=== PATIENT | male | born 1940 | race Asian ===

== ENCOUNTER → 2021-02-01 01:35 | Outpatient (CLI) | payer MEDICARE, SELFPAY ==
[2021-02-02 14:52] LABS: SARS-CoV-2 RNA PCR Negative
== END ==
PROVIDERS: PCP Internal Medicine; Visit Provider Internal Medicine Hematology & Oncology
DX: Z01.812 Encounter for preprocedural laboratory examination (principal); Z20.822 Contact with and (suspected) exposure to COVID-19
CPT/HCPCS: C9803; U0003; U0005

== ENCOUNTER 2021-02-05 00:52 | Day surgery (SDC) | payer MEDICARE, SELFPAY ==
[2021-02-04 10:16] VITALS: BMI 25.4
--- NOTE | ~2021-02-05 | BM_ITS ---
EXAMINATION: CCL bone marrow asp w bx diag ORDER COMPLETED DATE: 02/05/2021 09:13 INDICATION: Macrocytic anemia TECHNIQUE: A time-out was performed to verify the patient's name, date of , and procedure to b e performed. The procedure including the risks, benefits, and alternatives was discussed with the pat ient. Risks discussed included bleeding and infection. The patient understood the risks and agreed to proceed. The skin overlying the right posterior iliac spine was prepped and draped in usual sterile fashion. Anesthetic was administered with 1% lidocaine subcutaneously. Systemic analgesia was provide d with 50 mcg fentanyl IV. An 11 gauge needle was inserted into the ilium with fluoroscopic guidance. Bone marrow was aspirated. An 8 gauge needle was then inserted into the ilium with fluoroscopic guid ance. A core bone marrow biopsy was obtained. There were no immediate complications. Fluoroscopy expo sure time was 0.1 minutes. The total number of images was 7. Total DAP was 55.3 mGycm^2 FINDINGS: Real-time fluoroscopy demonstrates a marker overlying the right posterior iliac spine. IMPRESSION: 1. Successful fluoro-guided bone marrow aspiration. 2. Successful fluoro-guided bone marrow core biopsy. Reviewed, dictated and finalized at location A.
--- NOTE | 2021-02-05 07:15 | SUR.PREOP ---
ARRIVES TO [facility] FOR SCHEDULED BONE MARROW BX AND ASPIRATION AMBULATORY W/ AT SIDE. ORIENTED TO ROOM, PLAN OF CARE, PROCEDURE. QUESTIONS ANSWERED. IV STARTED, LABS SENT, VS OBTAINED, CONSENT SIGNED. WILL CONTINUE TO MONITOR.
[2021-02-05 07:30] VITALS: BP 156/67; PULSE 68; RESP 15; TEMP 36; O2SAT 99
[2021-02-05 07:34] LABS: Basophils Absolute Auto 0.1 K/mm3 (0.0-0.1); Basophils Percent Auto 0.6 % (0.2-1.2); Eosinophils Absolute Auto 0.4 K/mm3 (0-0.3); Hematocrit 32.4 % (42.0-52.0); Hemoglobin 10.5 g/dL (14.0-18.0); Immature Granulocyte Absolute 0.05 K/mm3 (0.00-0.031); Immature Granulocyte Percent A 0.6 % (0-0.5); Lymphocytes Absolute Auto 2.47 K/mm3 (0.9-3.2); Lymphocytes Percent Auto 28.5 % (18.3-44.2); Mean Corpuscular HGB Conc 32.4 g/dl (32-36); Mean Corpuscular Hemoglobin 31.4 pg (26-34); Mean Platelet Volume 9.7 fl (7.4-10.4); Monocytes Absolute Auto 0.7 K/mm3 (0.1-0.6); Monocytes Percent Auto 7.6 % (2.6-8.5); Neutrophils Absolute Auto 5.1 K/mm3 (1.3-6.7); Neutrophils Percent Auto 58.7 % (45.5-73.1); Platelet Count Result 231 k/mm3 (150-375); Red Blood Count 3.34 M/mm3 (4.6-6.20); Red Cell Distribution Width 13.8 % (11.5-14.5); White Blood Count 8.7 K/mm3 (4.5-10.0)
[2021-02-05 07:43] LABS: INR 0.8; Prothrombin Time 12.1 Seconds (11.1-14.7)
--- NOTE | 2021-02-05 08:41 | P.SEDATION_ITS ---
Moderate Sedation Note-Pt Data Patient Data Allergies Allergy/AdvReac Type Severity Reaction Status Date / Time No Known Allergies Allergy Verified 02/05/21 07:36 Home Medications Medication Instructions Recorded Confirmed Type L. acidophilus-L. rhamnosus 2 cap PO DAILY 02/05/21 02/05/21 History [Digestive Health Probiotic] ascorbic acid (vitamin C) 1 g PO DAILY 02/05/21 02/05/21 History aspirin [Adult Low Dose Aspirin] 81 mg PO DAILY 02/05/21 02/05/21 History calcium carbonate-vitamin D3 1 tablet PO DAILY 02/05/21 02/05/21 History [Calcium with Vitamin D] lisinopril 10 mg PO DAILY 02/05/21 02/05/21 History metformin 1,000 mg PO BID 02/05/21 02/05/21 History hblggclgajob-dlm-gsco-FA-vit K 1 tablet PO DAILY 02/05/21 02/05/21 History [Adults Multivitamin] omega-3 fatty acids [Fish Oil] 600 mg PO DAILY 02/05/21 02/05/21 History oxybutynin chloride 10 mg PO DAILY 02/05/21 02/05/21 History tamsulosin 0.8 mg PO DAILY 02/05/21 02/05/21 History Sedation/Anesthesia: No previous sedation/anesthesia problems (including family history). [facility] Past Medical History Medical History (Updated 02/05/21 @ 08:43 by Enrique Price MD) Colon cancer Social History Social History Smoking packs per day: 0.25 Smoking cigarettes per day: 5.0 Years smoked: 60 Smoking pack-years: 15.00 Smoking status: Current every day smoker Tobacco type: cigarettes Substance use: never Substance use type: does not use Living arrangements: with family Gender identity (if verbalized by the patient): Male Spiritual care concerns: No Mod Sed Physical Exam Physical Exam Pre Procedural Exam: Normal: Appearance, Eyes, Ears, Nose, Neck, Throat, Airway, Lungs, Heart Rate, Heart Rhythm, Abdomen, Extremities and Skin Hours since solid foods: 12 Hours since liquid intake: 12 Internal Medicine - PN: Obj Da Vital Signs Vital Signs: Vital Signs - 24 hr 02/05/21 07:30 Temperature 96.8 F L Pulse Rate 68 Respiratory Rate 15 Blood Pressure 156/67 H Pulse Oximetry 99 Labs CBC & Chem 7: 02/05/21 07:22 Labs: Laboratory Results - last 24 hr 02/05/21 02/05/21 07:22 07:22 WBC 8.7 RBC 3.34 L Hgb 10.5 L Hct 32.4 L MCV 97.0 MCH 31.4 MCHC 32.4 RDW 13.8 Plt Count 231 MPV 9.7 Immature Gran % (Auto) 0.6 H Neut % (Auto) 58.7 Lymph % (Auto) 28.5 [place] % (Auto) 7.6 Eos % (Auto) 4.0 Baso % (Auto) 0.6 Lymph # (Auto) 2.47 [place] # (Auto) 0.7 H Eos # (Auto) 0.4 H Baso # (Auto) 0.1 Abs Immat Gran (auto) 0.05 H Absolute Neuts (auto) 5.1 Absolute Nucleated RBC 0.0 Nucleated RBC % 0.0 PT 12.1 INR 0.8 ASA Classification/Sedation ASA Classification/Sedation ASA Class: III Emergent: No Risks: Risks, benefits and alternatives explained and patient/family accepted plan for sedation. Patient re-evaluated immediately prior to sedation.
--- NOTE | 2021-02-05 08:45 | P.SEDATION_ITS ---
Moderate Sedation Note-Pt Data Patient Data Allergies Allergy/AdvReac Type Severity Reaction Status Date / Time No Known Allergies Allergy Verified 02/05/21 07:36 Home Medications Medication Instructions Recorded Confirmed Type L. acidophilus-L. rhamnosus 2 cap PO DAILY 02/05/21 02/05/21 History [Digestive Health Probiotic] ascorbic acid (vitamin C) 1 g PO DAILY 02/05/21 02/05/21 History aspirin [Adult Low Dose Aspirin] 81 mg PO DAILY 02/05/21 02/05/21 History calcium carbonate-vitamin D3 1 tablet PO DAILY 02/05/21 02/05/21 History [Calcium with Vitamin D] lisinopril 10 mg PO DAILY 02/05/21 02/05/21 History metformin 1,000 mg PO BID 02/05/21 02/05/21 History tqjjbsdsxecv-zxx-xpan-FA-vit K 1 tablet PO DAILY 02/05/21 02/05/21 History [Adults Multivitamin] omega-3 fatty acids [Fish Oil] 600 mg PO DAILY 02/05/21 02/05/21 History oxybutynin chloride 10 mg PO DAILY 02/05/21 02/05/21 History tamsulosin 0.8 mg PO DAILY 02/05/21 02/05/21 History Sedation/Anesthesia: No previous sedation/anesthesia problems (including family history). [facility], [facility] Past Medical History Medical History (Updated 02/05/21 @ 08:43 by Enrique Price MD) Colon cancer Social History Social History Smoking packs per day: 0.25 Smoking cigarettes per day: 5.0 Years smoked: 60 Smoking pack-years: 15.00 Smoking status: Current every day smoker Tobacco type: cigarettes Substance use: never Substance use type: does not use Living arrangements: with family Gender identity (if verbalized by the patient): Male Spiritual care concerns: No Mod Sed Physical Exam Physical Exam Pre Procedural Exam: Normal: Appearance, Eyes, Ears, Nose, Neck, Throat, Airway, Lungs, Heart Rate, Heart Rhythm, Abdomen, Extremities and Skin Hours since solid foods: 12 Hours since liquid intake: 12 Internal Medicine - PN: Obj Da Vital Signs Vital Signs: Vital Signs - 24 hr 02/05/21 07:30 Temperature 96.8 F L Pulse Rate 68 Respiratory Rate 15 Blood Pressure 156/67 H Pulse Oximetry 99 Labs CBC & Chem 7: 02/05/21 07:22 Labs: Laboratory Results - last 24 hr 02/05/21 02/05/21 07:22 07:22 WBC 8.7 RBC 3.34 L Hgb 10.5 L Hct 32.4 L MCV 97.0 MCH 31.4 MCHC 32.4 RDW 13.8 Plt Count 231 MPV 9.7 Immature Gran % (Auto) 0.6 H Neut % (Auto) 58.7 Lymph % (Auto) 28.5 [place] % (Auto) 7.6 Eos % (Auto) 4.0 Baso % (Auto) 0.6 Lymph # (Auto) 2.47 [place] # (Auto) 0.7 H Eos # (Auto) 0.4 H Baso # (Auto) 0.1 Abs Immat Gran (auto) 0.05 H Absolute Neuts (auto) 5.1 Absolute Nucleated RBC 0.0 Nucleated RBC % 0.0 PT 12.1 INR 0.8 ASA Classification/Sedation ASA Classification/Sedation ASA Class: III Emergent: No Risks: Risks, benefits and alternatives explained and patient/family accepted plan for sedation. Patient re-evaluated immediately prior to sedation.
[2021-02-05 09:17] VITALS: BP 175/85; PULSE 77; RESP 12; O2SAT 99
[2021-02-05 09:30] VITALS: BP 136/53; PULSE 78; RESP 12; TEMP 36.6; O2SAT 100
[2021-02-05 09:45] VITALS: BP 132/52; PULSE 77; RESP 14; O2SAT 98
[2021-02-05 10:00] VITALS: BP 134/61; PULSE 74; RESP 14; O2SAT 98
[2021-02-05 10:15] VITALS: BP 152/66; PULSE 78; RESP 14; O2SAT 100
--- NOTE | 2021-02-05 10:30 | SUR.PHASEII ---
REVIEWED DISCHARGE INSTRUCTIONS, WOUND CARE, FOLLOW UP WITH PT. AND HIS . QUESTIONS ANSWERED. VOICED UNDERSTANDING OF ALL. R. 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 SITE SOFT, NONTENDER. NO BLEEDING OR EDEMA NOTED. DENIES PAIN. DISCHARGED HOME, OUT VIA WC TO 'S WAITING CAR. VOICES NO C/O. NO DISTRESS NOTED.
--- NOTE | 2021-02-05 11:55 | SUR.PHASEII ---
PT. 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 DR. GILMORE AWARE AND STATES HE WILL NOTIFY DR. OSBORNE HIMSELF OF RHYTHM. PT. WITHOUT DISTRESS OR C/O.
== END 2021-02-05 09:13 | disposition home or self-care (01) ==
PROVIDERS: Radiology Diagnostic Radiology; PCP Internal Medicine; Visit Provider Internal Medicine Hematology & Oncology
DX: D53.9 Nutritional anemia, unspecified (principal); F17.210 Nicotine dependence, cigarettes, uncomplicated; Z85.038 Personal history of other malignant neoplasm of large intestine
CPT/HCPCS: 36415; 38222; 85025; 85610; 88184; 88185; 88305; 88311; 88313; C9803; J3010; J7040; U0003; U0005

== ENCOUNTER 2021-09-16 09:22 | Outpatient (CLI) | payer MEDICARE, SELFPAY ==
[2021-09-16 10:36] LABS: Basophils Absolute Auto 0.1 K/mm3 (0.0-0.1); Eosinophils Absolute Auto 0.3 K/mm3 (0-0.3); Eosinophils Percent Auto 4.2 % (0-4.4); Hematocrit 31.5 % (42.0-52.0); Immature Granulocyte Absolute 0.02 K/mm3 (0.00-0.031); Immature Granulocyte Percent A 0.3 % (0-0.5); Lymphocytes Absolute Auto 3.19 K/mm3 (0.9-3.2); Lymphocytes Percent Auto 47.3 % (18.3-44.2); Mean Corpuscular HGB Conc 31.7 g/dl (32-36); Mean Corpuscular Hemoglobin 31.9 pg (26-34); Mean Corpuscular Volume 100.6 fl (80-100); Mean Platelet Volume 9.7 fl (7.4-10.4); Monocytes Absolute Auto 0.4 K/mm3 (0.1-0.6); Monocytes Percent Auto 6.1 % (2.6-8.5); Neutrophils Absolute Auto 2.8 K/mm3 (1.3-6.7); Neutrophils Percent Auto 41.1 % (45.5-73.1); Platelet Count Result 304 k/mm3 (150-375); Red Blood Count 3.13 M/mm3 (4.6-6.20); Red Cell Distribution Width 16.2 % (11.5-14.5); White Blood Count 6.7 K/mm3 (4.5-10.0)
[2021-09-16 10:51] LABS: Alanine Aminotransferase 14 U/L (4-50); Albumin Level 4.3 g/dL (3.5-5.1); Alkaline Phosphatase 44 U/L (38-126); Anion Gap 9 mmol/L (8-16); Aspartate Amino Transferase 21 U/L (17-59); Bilirubin,Total 0.4 mg/dL (0.2-1.3); Blood Urea Nitrogen 24 mg/dL (9-20); Calcium 9.9 mg/dL (8.4-10.2); Carbon Dioxide 24 mmol/L (22-30); Chloride 106 mmol/L (98-107); Estimated Glomerular Filt Rate 53; Glucose 121 mg/dL (65-110); Potassium 4.1 mmol/L (3.4-5.0); Sodium 139 mmol/L (137-145)
[2021-09-16 11:01] LABS: Parathyroid Intact 22.5 pg/mL (7.5-53.5)
[2021-09-16 11:26] LABS: Hemoglobin A1C 5.5 % (<5.7)
[2021-09-16 11:27] LABS: Add Urine Microscopic? YES; Amorphous Sediment Urine Few; Appearance Urine Cloudy (Clear); Bacteria Urine Trace /hpf; Bilirubin Urine Negative (Negative); Budding Yeast Urine Present /hpf; Color Urine Yellow (Yellow); Glucose Urine UA Negative (Negative); Ketones Urine Negative (Negative); Leukocyte Esterase Ur 1+ LEU/UL (Negative); Mucus Urine Rare /lpf; Nitrate Urine Positive (Negative); Protein Urine 2+ mg/dL (Negative); Specific Grav Ur 1.017 (1.001-1.035); Squamous Epithelial Cell Urine Rare /hpf (Few); Urobilinogen Urine Negative mg/dL (<2.0); WBC Urine 21-30 /hpf
[2021-09-16 11:41] LABS: Blood Urine Negative (Negative)
[2021-09-16 12:01] LABS: Erythrocyte Sedimentation Rate 118 mm/hr (0-20)
[2021-09-21 04:58] LABS: Vitamin D 1,25 (OH)2 Total 19 pg/mL (18-72); Vitamin D2 1,25 (OH)2 <8 pg/mL; Vitamin D3 1,25 (OH)2 19 pg/mL
== END 2021-09-16 09:23 | disposition home or self-care (01) ==
DX: R68.89 Other general symptoms and signs (principal); E79.0 Hyperuricemia without signs of inflammatory arthritis and tophaceous disease; E55.9 Vitamin D deficiency, unspecified; R70.0 Elevated erythrocyte sedimentation rate; R73.09 Other abnormal glucose; E21.3 Hyperparathyroidism, unspecified
CPT/HCPCS: 36415; 80053; 81001; 82652; 83036; 83970; 84550; 85025; 85652; 87086; 87088

== ENCOUNTER 2022-02-19 01:36 | Day surgery (SDC) | payer MEDICARE, SELFPAY ==
[2022-02-06 14:21] VITALS: BMI 23.3
[2022-02-19 11:11] VITALS: BP 158/57; PULSE 85; RESP 18; TEMP 36.8; O2SAT 100
--- NOTE | 2022-02-19 11:17 | WPDHPUPDATE1 ---
History and Physical Update Update Date/Time: 02/19/22 11:17 History and Physical has been reviewed, including an updated exam of the patient. There are NO changes in the patient's condition. Risks, benefits, and alternatives have been discussed and questions answered. Patient agrees to proceed with procedure.
[2022-02-19] MEDS: LACTATED RINGERS 1,000 ML 150 ML IV CONT (11:23)
[2022-02-19 11:32] LABS: Glucose Point of Care 90 mg/dl (65-105)
--- NOTE | 2022-02-19 11:48 | WPDANESEPPF ---
Anes - Initial Pre Proc Eval Procedure: Operation Date: 02/19/22 12:30 Proposed Procedures p Esophagogastroduodenoscopy & Colonoscopy - Ethan Leslie MD Date/Time: 02/19/22 11:48 Surgeon: Ethan Leslie MD Pre Op Diagnosis: anemia, hx of colon ca Patient Data Age: 81 Gender: M Height: 1.75 m Weight: 67.8 kg Last Vital Signs Temp 98.3 F 02/19/22 11:11 Pulse 85 02/19/22 11:11 Resp 18 02/19/22 11:11 BP 158/57 H 02/19/22 11:11 Pulse Ox 100 02/19/22 11:11 O2 Del Method Room Air 02/19/22 11:11 Allergies Allergy/AdvReac Type Severity Reaction Status Date / Time No Known Allergies Allergy Verified 02/19/22 11:09 Home Medications Medication Instructions Recorded Confirmed Type Lactobacillus acidophilus and 2 cap PO DAILY 02/05/21 02/11/22 History rhamnosus 10 billion cell capsule (Digestive Health Probiotic) ascorbic acid (vitamin C) 1,000 mg 1 g PO DAILY 02/05/21 02/11/22 History tablet aspirin 81 mg tablet 81 mg PO DAILY 02/05/21 02/11/22 History calcium carbonate 600 mg-vitamin 1 tablet PO DAILY 02/05/21 02/11/22 History D3 10 mcg (400 unit) tablet (Calcium with Vitamin D) lisinopril 10 mg tablet 10 mg PO DAILY 02/05/21 02/11/22 History metformin 500 mg tablet 1,000 mg PO BID 02/05/21 02/11/22 History multivit with minerals-iron 18 1 tablet PO DAILY 02/05/21 02/11/22 History mg-folic ac 400 mcg-vit K 25 mcg tablet (Adults Multivitamin) omega-3 fatty acids 300 mg capsule 600 mg PO DAILY 02/05/21 02/11/22 History tamsulosin 0.4 mg capsule 0.8 mg PO DAILY 02/05/21 02/11/22 History Laboratory Tests 02/19/22 11:28 POC Capillary Glucose 90 mg/dl mg/dl (65-105) Patient hx anesthesia problems: none Family hx anesthesia problems: none Results Review: All pre-operative results and documents have been reviewed as part of the pre-operative evaluation. [facility] Past Medical History Medical History Colon cancer Social History Social History Smoking packs per day: 0.3 Smoking cigarettes per day: 6.0 Years smoked: 50 Smoking pack-years: 15.00 Smoking status: Current every day smoker Tobacco type: cigarettes Alcohol intake: never Substance use: never Substance use type: does not use Living arrangements: with family Gender identity (if verbalized by the patient): Male Spiritual care concerns: No Anes - Eval Final PreProcedure Day of Procedure 02/19/22 11:48 Patient weight: normal Heart: regular rate and rhythm Lungs: clear to auscultation Airway: Mallampati scale class II Neurological: alert and oriented Last oral intake: >/= 8 hours ASA classification: III Emergent: no Anesthetic plan: proceed Anesthesia type and monitoring: general GIVS and standard monitoring Results Review: All pre-operative results and documents have been reviewed as part of the pre-operative evaluation. Informed Consent: The patient's anesthetic plan and its attendant risks and benefits were discussed with the patient/family/POA. Questions were solicited and answers provided to the satisfaction of the patient/family/POA.
--- NOTE | 2022-02-19 12:32 | SUR.OPER ---
EGD ENDED AT 1227, COLONOSCOPY BEGAN AT 1232.
[2022-02-19 12:49] VITALS: BP 122/50; PULSE 71; RESP 19; O2SAT 92
[2022-02-19 12:59] VITALS: BP 116/50; PULSE 69; RESP 19; O2SAT 92
[2022-02-19 13:04] VITALS: BP 155/66; PULSE 69; RESP 18; O2SAT 97
== END 2022-02-19 13:34 | disposition home or self-care (01) ==
PROVIDERS: PCP Internal Medicine; Visit Provider Internal Medicine Gastroenterology
PROC: 0DJ08ZZ Inspection of Upper Intestinal Tract, Via Natural or Artificial Opening Endoscopic (ICD-10-PCS; CPT 43235; principal; 2022-02-19 12:30)
DX: Z12.11 Encounter for screening for malignant neoplasm of colon (principal); D12.5 Benign neoplasm of sigmoid colon; K57.30 Diverticulosis of large intestine without perforation or abscess without bleeding; I12.9 Hypertensive chronic kidney disease with stage 1 through stage 4 chronic kidney disease, or unspecified chronic kidney disease; E11.22 Type 2 diabetes mellitus with diabetic chronic kidney disease; N18.9 Chronic kidney disease, unspecified; F17.210 Nicotine dependence, cigarettes, uncomplicated; Z85.038 Personal history of other malignant neoplasm of large intestine
CPT/HCPCS: 45385; 43235; 82948; 88305; J2704; J7120

== ENCOUNTER 2023-01-07 12:32 | Emergency (ER) | payer MEDICARE, SELFPAY ==
[2023-01-07 12:50] VITALS: BP 131/56; PULSE 75; TEMP 36.4; O2SAT 100
--- NOTE | 2023-01-07 14:15 | ED.EPISTAXIS ---
HPI - Epistaxis General Chief complaint: Epistaxis Stated complaint: nose bleed Time Seen by Provider: 01/07/23 13:58 Source: patient Mode of arrival: ambulatory Limitations: no limitations History of Present Illness HPI Narrative: Patient is an 82-year-old male with a history of hypertension presenting to the emergency department for evaluation of nosebleed. Patient reports nosebleeding from the right nostril over the past 10 days. Patient recently had his chronic anticoagulation discontinued secondary to his nosebleeding. He denies fever, chills, nausea, vomiting, lightheadedness or dizziness. No syncopal events. No dyspnea, palpitations or shortness of breath. Patient without history of facial trauma. Reports intermittent spontaneous nosebleeding, does often respond well to pressure to the naris with cessation of bleeding. Related Data Home Medications Medication Instructions Recorded Confirmed Lactobacillus acidophilus and 2 cap PO DAILY 02/05/21 09/09/22 rhamnosus 10 billion cell capsule ([employer] Health Probiotic) ascorbic acid (vitamin C) 1,000 mg 1 g PO DAILY 02/05/21 09/09/22 tablet aspirin 81 mg tablet 81 mg PO DAILY 02/05/21 09/09/22 calcium carbonate 600 mg-vitamin 1 tablet PO DAILY 02/05/21 09/09/22 D3 10 mcg (400 unit) tablet (Calcium with Vitamin D) lisinopril 10 mg tablet 10 mg PO DAILY 02/05/21 09/09/22 metformin 500 mg tablet 1,000 mg PO BID 02/05/21 09/09/22 multivit with minerals-iron 18 1 tablet PO DAILY 02/05/21 09/09/22 mg-folic ac 400 mcg-vit K 25 mcg tablet (Adults Multivitamin) omega-3 fatty acids 300 mg capsule 600 mg PO DAILY 02/05/21 09/09/22 tamsulosin 0.4 mg capsule 0.8 mg PO DAILY 02/05/21 09/09/22 Allergies Allergy/AdvReac Type Severity Reaction Status Date / Time No Known Allergies Allergy Verified 01/07/23 13:06 Review of Systems Review of Systems: CONSTITUTIONAL: Denies fever HEENT: Patient reports right epistaxis CARDIOVASCULAR: Denies chest pain RESPIRATORY: Denies cough or dyspnea. GASTROINTESTINAL: Denies abdominal pain SKIN: Denies rash MUSCULOSKELETAL: Denies back pain NEUROLOGIC: Denies headache [facility] Past Medical History Medical History (Updated 01/07/23 @ 16:09 by Jojo Lopes MD) Anemia in CKD (chronic kidney disease) Colon cancer History of colon cancer HTN (hypertension), benign Macrocytic anemia Renal insufficiency Social History Social History Smoking packs per day: 0.3 Smoking cigarettes per day: 6.0 Years smoked: 50 Smoking pack-years: 15.00 Smoking status: Current every day smoker Tobacco type: cigarettes Alcohol intake: never Substance use: never Substance use type: does not use Living arrangements: with family Gender identity (if verbalized by the patient): Male Spiritual care concerns: No Exam Narrative: GENERAL: Awake, alert, conversant HEAD: Normocephalic, atraumatic. EYES: PERRLA and EOMI. ENT: Nares clear, no rhinorrhea; slow bleeding, right naris. Bleeding source is anterior. Mucous membranes moist. NECK: Supple. CHEST: No respiratory distress, breathing even and non labored HEART: Regular rate, sinus rhythm ABDOMEN:Non distended, non tender EXTREMITIES: Normal range of motion. No edema. SKIN: Warm, dry, no rash. NEURO:No focal deficits. Alert and oriented x3 Course Vital Signs Vital signs: Vital Signs Temperature 36.4 C 01/07/23 12:50 Pulse Rate 75 01/07/23 12:50 Blood Pressure 131/56 L 01/07/23 12:50 Pulse Oximetry 100 01/07/23 12:50 Temperature 36.4 C 01/07/23 12:50 Pulse Rate 75 01/07/23 12:50 Blood Pressure 131/56 L 01/07/23 12:50 Pulse Oximetry 100 01/07/23 12:50 MDM - Epistaxis MDM Narrative Medical decision making narrative: Medical decision making narrative: -Presentation: Presented for evaluation of right naris epistaxis consistent with anterior epistaxis. Patient
[2023-01-07 16:16] VITALS: BP 132/66; PULSE 89; RESP 17; O2SAT 99
== END 2023-01-07 16:17 | disposition home or self-care (01) ==
PROVIDERS: Emergency Provider Emergency Medicine; PCP Internal Medicine
DX: R04.0 Epistaxis (principal); I12.9 Hypertensive chronic kidney disease with stage 1 through stage 4 chronic kidney disease, or unspecified chronic kidney disease; E11.22 Type 2 diabetes mellitus with diabetic chronic kidney disease; N18.9 Chronic kidney disease, unspecified; D63.1 Anemia in chronic kidney disease; Z79.84 Long term (current) use of oral hypoglycemic drugs; Z79.82 Long term (current) use of aspirin
CPT/HCPCS: 99282; A9270

== ENCOUNTER 2023-05-11 14:17 | Outpatient (CLI) | payer MEDICARE, SELFPAY ==
--- NOTE | ~2023-05-11 | XR_ITS ---
EXAM: XR lumbar spine 2-3V DATE: 05/11/2023 14:43 HISTORY: Spondylosis without myelopathy or radiculopathy, lumbar nita . COMPARISON: None available. FINDINGS: Decreased mineralization. Mild fusiform dilation of the calcified abdominal aorta, measurin g up to 2.7 cm. 5 nonrib-bearing lumbar-type vertebral bodies. Pedicles intact. Normal vertebral body alignment. Vertebral body heights preserved. Mild disc space narrowing and marginal osteophytosis at L3-4. Mild osteophytosis at L4-5. Mild facet sclerosis and hypertrophy in the lower lumbar spine. No fracture or dislocation. IMPRESSION: Mild multilevel lumbar degenerative disc disease. Mild lower lumbar facet arthropathy 2.7 cm fusiform dilation of the abdominal aorta, consider ultrasound of the aorta for further evaluat ion. Reviewed, dictated and finalized at location K. IMPRESSION: Mild multilevel lumbar degenerative disc disease. Mild lower lumbar facet arthropathy 2.7 cm fusiform dilation of the abdominal aorta, consider ultrasound of the aor ta for further evaluation.
== END 2023-05-11 14:18 ==
PROVIDERS: PCP Anesthesiology Pain Medicine; Visit Provider Anesthesiology Pain Medicine
DX: M47.896 Other spondylosis, lumbar region (principal); M51.36 Other intervertebral disc degeneration, lumbar region
CPT/HCPCS: 72100

== ENCOUNTER 2023-06-05 11:13 | Outpatient (CLI) | payer MEDICARE, SELFPAY ==
--- NOTE | ~2023-06-05 | MR_ITS ---
MRI of the lumbar spine Clinical History: Back pain Technique: Axial T2-weighted images, and sagittal T1-weighted, T2-weighted, and T2 fat-sat images wer e acquired. Findings: There is no fracture or subluxation of lumbar spine. Vertebral bodies maintain normal heigh t and alignment. No suspicious bone marrow signal abnormality seen. At L1-L2, there is no disc bulge or herniation. There is moderate facet arthropathy. No central canal stenosis or neural foraminal narrowing. At L2-L3, there is no disc bulge or herniation. There is moderate facet arthropathy. No central canal stenosis or neural foraminal narrowing. At L3-L4, there is minimal disc bulge with moderate facet arthropathy. There is minimal central canal stenosis. Neural foramina are preserved. At L4-L5, there is mild diffuse disc bulge with moderate facet arthropathy. There is mild central can al stenosis/thecal sac compression. There is mild bilateral neural foraminal narrowing. At L5-S1, there is no significant disc bulge or herniation. There is mild to moderate facet arthropat hy. No central canal stenosis or neural foraminal narrowing. Paravertebral soft tissues are unremarkable. Impression: Mild degenerative spondylosis, as above. Reviewed, dictated and finalized at location . Impression: Mild degenerative spondylosis, as above.
== END 2023-06-05 11:14 ==
LOC: MICIMG 11:15
PROVIDERS: PCP Nurse Practitioner Family; Visit Provider Nurse Practitioner Family
DX: M54.59 Other low back pain (principal)
CPT/HCPCS: 72148

== ENCOUNTER 2024-08-22 14:46 | Outpatient (CLI) | payer MEDICARE, SELFPAY ==
--- NOTE | ~2024-08-22 | XR_ITS ---
EXAMINATION: XR lumbar spine 2-3V DATE: 08/22/2024 15:04 INDICATION: Other spondylosis with radiculopathy, lumbosacral region. Low back pain. TECHNIQUE: 3 views of lumbar spine including standing views were obtained. COMPARISON: Lumbar spine radiographs 05/11/2023, MRI 06/05/2023 FINDINGS: Alignment is normal. Vertebral body heights are normal. There is mildly decreased disc heig ht at L3-L4. There are endplate osteophytes at all levels. 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 IMPRESSION: 1. Mild lumbar spondylosis. Reviewed, dictated and finalized at location A. TABLE SORTER IMPRESSION: 1. Mild lumbar spondylosis.
== END 2024-08-22 14:47 | disposition home or self-care (01) ==
PROVIDERS: PCP Pain Medicine Interventional Pain Medicine; Visit Provider Pain Medicine Interventional Pain Medicine
DX: E11.49 Type 2 diabetes mellitus with other diabetic neurological complication (principal); E11.618 Type 2 diabetes mellitus with other diabetic arthropathy; M51.16 Intervertebral disc disorders with radiculopathy, lumbar region; M51.17 Intervertebral disc disorders with radiculopathy, lumbosacral region; M47.27 Other spondylosis with radiculopathy, lumbosacral region; M47.26 Other spondylosis with radiculopathy, lumbar region; M47.816 Spondylosis without myelopathy or radiculopathy, lumbar region; M47.817 Spondylosis without myelopathy or radiculopathy, lumbosacral region; G89.4 Chronic pain syndrome
CPT/HCPCS: 72100

== ENCOUNTER 2025-06-08 10:29 | Emergency (ER) | payer MEDICARE, SELFPAY ==
--- OUTSIDE RECORDS SUMMARY | 2024-01-10 09:15 | XMS_ITS ---
Author Organization [facility] Office Address [address] [place] [address] Care Team Providers Care Research Quality Assurance Specialist Name Role Phone Richa Núñez Unavailable [phone] Medications Medication SIG (Take, Route, Frequency, Duration) Notes Start Date End Date Status Janumet 50-500 MG 1 tablet with meals Orally Twice a day Active metFORMIN HCl 1000 MG 1 tablet with a me al Orally twice a day; Duration: 90 day(s) 02/09/2022 Active metFORMIN HCl 500 MG 1 tablet with a mino l Orally Once a day; Duration: 30 days Active Solifenacin Succinate 5 MG TAKE 1 TABLET BY MOUTH EVERY DAY FOR 90 DAYS; Duration: 90 Active glipiZIDE ER 5 MG 1 tablet with breakfast Orally Once a day; Duration: 90 days discard last, updated for 90 days 08/02/2023 Active Lisinopril 10 MG TAKE 1 TABLET BY MOUTH EVERY DAY; Duration: 90 Active Tamsulosin HCl 0.4 MG TAKE 2 CAPSULES BY MOUTH EVERY NIGHT; Duration: 90 Active glipiZIDE 5 MG 1 tablet 30 minutes before breakfast Orally Once a day; Duration: 30 day(s) 08/02/2023 Active Social History Sex Assigned At : Social History Observation Description Sex Assigned At Male Encounters Encounter Location Date Provider Diagnosis [facility] [place] [facility] [address] [place] [address] 01/10/2024 Richa Núñez Chronic kidney disease, stage 2 (mild) N18.2 ; Anemia, unspecified D64.9 ; Type 2 diabetes mellitus with hyperglycemia E11.65 ; Hyperlipidemia, unspecified E78.5 and Essential (primary) hypertension I10 Assessments Encounter Date Diagnosis (ICD Code) Assessment Notes Treatment Notes Treatment Clinical Notes Section Notes 01/10/2024 Chronic kidney disease, stage 2 (mild) (ICD-10 - N18.2) 01/10/2024 Anemia, unspecified (ICD-10 - D64.9) 01/10/2024 Type 2 diabetes mellitus with hyperglycemia (ICD-10 - E11.65) 01/10/2024 Hyperlipidemia, unspecified (ICD-10 - E78.5) 01/10/2024 Essential (primary) hypertension (ICD-10 - I10) Plan Of Treatment Next Appt Details Provider Name:Richa tanner, 09/10/2025 02:30:00 PM, [address], [place], [address], Progress Notes * DANETTE MARCELELODOB:1940 ( 84 yo M)Acc No.[id number]:01/10/2024 Progress Notes Patient: SY RESENDIZ Provider: Brandon NÚÑEZ M.D :1940 A ge:83 Y S ex:Male Date:01/10/2024 Address:[address] [place] [address] Subjective: * Chief Complaints: * * Medical History: * Medications: T aking Janumet 50-500 MG Tablet 1 tablet with meals Orally Twice a day , Taking metFORMIN HCl 1000 MG Tablet 1 tablet with a meal Orally twice a day , Taking metFORMIN HCl 500 MG Tablet 1 tablet with a meal Orally Once a day , Taking Lisinopril 10 MG Tablet TAKE 1 TABLET BY MOUTH EVERY DAY , Taking Tamsulosin HCl 0.4 MG Capsule TAKE 2 CAPSULES BY MOUTH EVERY NIGHT , Taking glipiZIDE 5 MG Tablet 1 tablet 30 minutes before breakfast Orally Once a day , Taking glipiZIDE ER 5 MG Tablet Extended Release 24 Hour 1 tablet with breakfast Orally Once a day , Notes to Pharmacist: discard last, updated for 90 days, Taking Solifenacin Succinate 5 MG Tablet TAKE 1 TABLET BY MOUTH EVERY DAY FOR 90 DAYS Objective: * Vitals: Assessment: * Assessment: 1. C hronic kidney disease, stage 2 (mild) - N18.2 2 . A nemia, unspecified - D64.9 3 . T ype 2 diabetes mellitus with hyperglycemia - E11.65 ?4. H yperlipidemia, unspecified - E78.5 5 . E ssential (primary) hypertension - I10 Plan: * Treatment: * Billing Information: * Visit Code: 13963 Office Visit, Est Pt., Level 3. * Procedure Codes: * Electronic signature of Ben Núñez MD on 06/08/2025 at 11:17 AM CDT Sign off status: Pending * Provider: Brandon NÚÑEZ M.D Date: 0 01/10/2024 Generated for Dayne smith/Lucien/Demetris on: 0 06/08/2025 11:17 AM CDT
--- OUTSIDE RECORDS SUMMARY | 2024-05-15 09:15 | XMS_ITS ---
Author Organization [facility] Office Address [address] [place] [address] Care Team Providers Care Mortising Machine Operator Name Role Phone KellyAdriRicha Unavailable [phone] Social History Sex Assigned At : Social History Observation Description Sex Assigned At Male Problems Problem Type SNOMED Code ICD Code Onset Dates Problem Status W/U Status Risk Notes Problem Chronic kidney disease stage 3B (disorder) (911826657) Chronic kidney disease, stage 3b (N18.32) Active confirmed Problem Hyperkalemia (81420329) Hyperkalemia (E87.5) Active confirmed Problem Lower urinary tract symptoms due to benign prostatic hypertrophy (33290148712738) Benign prostatic hyperplasia with lower urinary tract symptoms (N40.1) Active confirmed Encounters Encounter Location Date Provider Diagnosis [facility] [address] [facility] [address] [place] [address] 05/15/2024 Richa Núñze Chronic kidney disea se, stage 3b N18.32 ; Type 2 diabetes mellitus with hyperglycemia E11.65 ; Hyperkalemia E87.5 and Benign prostatic hyperplasia with lower urinary tract symptoms N40.1 Assessments Encounter Date Diagnosis (ICD Code) Assessment Notes Treatment Notes Treatment Clinical Notes Section Notes 05/15/2024 Chronic kidney disease, stage 3b (ICD-10 - N18.32) 05/15/2024 Type 2 diabetes mellitus with hyperglycemia (ICD-10 - E11.65) 05/15/2024 Hyperkalemia (ICD-10 - E87.5) 05/15/2024 Benign prostatic hyperplasia with lower urinary tract symptoms (ICD-10 - N40.1) Plan Of Treatment Next Appt Details Provider Name:Richa tanner, 09/10/2025 02:30:00 PM, [address], [address], [place], [address], Progress Notes * SY SAMANIEGODOB:1940 ( 84 yo M)Acc No.[id number]:05/15/2024 Progress Notes Patient: SY RESENDIZ Provider: Brandon NÚÑEZ M.D :1940 A ge:83 Y S ex:Male Date:05/15/2024 Address:[address] [place] [address] Subjective: * Chief Complaints: * * Medical History: Objective: * Vitals: Assessment: * Assessment: 1. C hronic kidney disease, stage 3b - N18.32 (Primary) 2 . T ype 2 diabetes mellitus with hyperglycemia - E11.65 3 . H yperkalemia - E87.5 ?4. B enign prostatic hyperplasia with lower urinary tract symptoms - N40.1 Plan: * Treatment: * Billing Information: * Visit Code: 44771 Office Visit, Est Pt., Level 4. * Procedure Codes: * Electronic signature of Ben Núñez MD on 06/08/2025 at 11:17 AM CDT Sign off status: Pending * Provider: Brandon NÚÑEZ M.D Date: 05/15/2024 Generated for Dayne smith/Lucien/Calitting on: 0 06/08/2025 11:17 AM CDT
--- OUTSIDE RECORDS SUMMARY | 2024-09-11 09:00 | XMS_ITS ---
Author Organization [facility] Address [address] [place] [address] Care Team Providers Care Machine Fastener Name Role Phone KellyRicha ahuja Unavailable [phone] Social History Sex Assigned At : Social History Observation Description Sex Assigned At Male Problems Problem Type SNOMED Code ICD Code Onset Dates Problem Status W/U Status Risk Notes Problem Low back pain (819187997) Low back pain, unspecified (M54.50) Active confirmed Encounters Encounter Location Date Provider Diagnosis [facility] [place] [facility] [address] [place] [address] 09/11/2024 Richa Núñez Chronic kidney disease, stage 3b N18.32 ; Type 2 diabetes mellitus with hyperglycemia E11.65 ; Low back pain, unspecified M54.50 and Benign prostatic hyperplasia with lower urinary tract symptoms N40.1 Assessments Encounter Date Diagnosis (ICD Code) Assessment Notes Treatment Notes Treatment Clinical Notes Section Notes 09/11/2024 Chronic kidney disease, stage 3b (ICD-10 - N18.32) 09/11/2024 Type 2 diabetes mellitus with hyperglycemia (ICD-10 - E11.65) 09/11/2024 Low back pain, unspecified (ICD-10 - M54.50) 09/11/2024 Benign prostatic hyperplasia with lower urinary tract symptoms (ICD-10 - N40.1) Plan Of Treatment Pending Test Test Name Order Date RENAL FUNCTION PANEL (80391) 09/11/2024 Future Test Test Name Order Date RENAL FUNCTION PANEL ([id number]) 11/07/2024 Next Appt Details Provider Name:Richa tanner, 09/10/2025 02:30:00 PM, [address], [place], [address], Progress Notes * SY SAMANIEGODOB:1940 ( 84 yo M)Acc No.[id number]:09/11/2024 Progress Notes Patient: SY RESENDIZ Provider: Brandon NÚÑEZ M.D :1940 A ge:83 Y S ex:Male Date:09/11/2024 Address:[address] [place], [place] [id number] Subjective: * Chief Complaints: * * Medical History: Objective: * Vitals: Assessment: * Assessment: 1. C hronic kidney disease, stage 3b - N18.32 (Primary) 2 . T ype 2 diabetes mellitus with hyperglycemia - E11.65 3 . L ow back pain, unspecified - M54.50? 4. B enign prostatic hyperplasia with lower urinary tract symptoms - N40.1 Plan: * Treatment: 2. T ype 2 diabetes mellitus with hyperglycemia L AB: RENAL FUNCTION PANEL (42329) L AB: RENAL FUNCTION PANEL (90739) (Ordered for 11/07/2024) 3. L ow back pain, unspecified L AB: RENAL FUNCTION PANEL (64084) L AB: RENAL FUNCTION PANEL (17210) (Ordered for 11/07/2024) 4. B enign prostatic hyperplasia with lower urinary tract symptoms L AB: RENAL FUNCTION PANEL (02506) L AB: RENAL FUNCTION PANEL (78047) (Ordered for 11/07/2024) * Billing Information: * Visit Code: 20606 Office Visit, Est Pt., Level 4. * Procedure Codes: * Electronic signature of Ben Núñez MD on 06/08/2025 at 11:17 AM CDT Sign off status: Pending * Provider: Branodn NÚÑEZ M.D Date: 1 11/12/2023 Generated for Dayne smith/Lucien/eTransmitting on: 0 06/08/2025 11:17 AM CDT
--- OUTSIDE RECORDS SUMMARY | 2025-01-15 09:45 | XMS_ITS ---
Author Organization [facility] Address [address] [place] [address] Care Team Providers Care Pacs Administrator Name Role Phone KellyAdri ahujahit Unavailable [phone] Social History Sex Assigned At : Social History Observation Description Sex Assigned At Male Encounters Encounter Location Date Provider Diagnosis [place] [facility] [address] [facility] [address] [place] [address] 01/15/2025 Richa Núñez Chronic kidney disea se, stage 3b N18.32 ; Type 2 diabetes mellitus with hyperglycemia E11.65 ; Anemia, unspecified D64.9 and Hyperkalemia E87.5 Assessments Encounter Date Diagnosis (ICD Code) Assessment Notes Treatment Notes Treatment Clinical Notes Section Notes 01/15/2025 Chronic kidney disease, stage 3b (ICD-10 - N18.32) 01/15/2025 Type 2 diabetes mellitus with hyperglycemia (ICD-10 - E11.65) 01/15/2025 Anemia, unspecified (ICD-10 - D64.9) 01/15/2025 Hyperkalemia (ICD-10 - E87.5) Plan Of Treatment Next Appt Details Provider Name:Richa tanner, 09/10/2025 02:30:00 PM, [address], [place], [address], Progress Notes * DANETTE SYDOB:1940 ( 84 yo M)Acc No.[id number]:01/15/2025 Progress Notes Patient: SY RESENDIZ Provider: Brandon NÚÑEZ M.D :1940 A ge:84 Y S ex:Male Date:01/15/2025 Address:[address] [place] [address] [address], [place], [id number] Subjective: * Chief Complaints: * * Medical History: Objective: * Vitals: Assessment: * Assessment: 1. C hronic kidney disease, stage 3b - N18.32 (Primary) 2 . T ype 2 diabetes mellitus with hyperglycemia - E11.65 3 . A nemia, unspecified - D64.9 ? 4 . H yperkalemia - E87.5 Plan: * Treatment: * Billing Information: * Visit Code: 20276 Office Visit, Est Pt., Level 3. * Procedure Codes: * Electronic signature of Ben Núñez MD on 06/08/2025 at 11:16 AM CDT Sign off status: Pending * Provider: Brandon NÚÑEZ M.D Date: 0 01/15/2025 Generated for Dayne smith/Lucien/Demetris on: 0 06/08/2025 11:16 AM CDT
--- OUTSIDE RECORDS SUMMARY | 2025-05-14 09:30 | XMS_ITS ---
Author Organization [facility] Address [address] [place] [address] Care Team Providers Care Defect Repairer Glassware Name Role Phone KellyAdri ahujahit Unavailable [phone] Social History Sex Assigned At : Social History Observation Description Sex Assigned At Male Encounters Encounter Location Date Provider Diagnosis [place] [facility] [address] [facility] [address] [place] [address] 05/14/2025 Richa Núñez Chronic kidney disea se, stage 3b N18.32 ; Type 2 diabetes mellitus with hyperglycemia E11.65 ; Essential (primary) hypertension I10 and Hyperkalemia E87.5 Assessments Encounter Date Diagnosis (ICD Code) Assessment Notes Treatment Notes Treatment Clinical Notes Section Notes 05/14/2025 Chronic kidney disease, stage 3b (ICD-10 - N18.32) 05/14/2025 Type 2 diabetes mellitus with hyperglycemia (ICD-10 - E11.65) 05/14/2025 Essential (primary) hypertension (ICD-10 - I10) 05/14/2025 Hyperkalemia (ICD-10 - E87.5) Plan Of Treatment Next Appt Details Provider Name:Richa tanner, 09/10/2025 02:30:00 PM, [address], [address], [place], [address], Progress Notes * SY SAMANIEGODOB:1940 ( 84 yo M)Acc No.[id number]:05/14/2025 Progress Notes Patient: SY RESENDIZ Provider: Brandon NÚÑEZ M.D :1940 A ge:84 Y S ex:Male Date:05/14/2025 Address:[address], [place], [id number] Subjective: * Chief Complaints: * * Medical History: Objective: * Vitals: Assessment: * Assessment: 1. C hronic kidney disease, stage 3b - N18.32 (Primary) 2 . T ype 2 diabetes mellitus with hyperglycemia - E11.65 3 . E ssential (primary) hypertension - I10 4 . H yperkalemia - E87.5 Plan: * Treatment: * Billing Information: * Visit Code: 09516 Office Visit, Est Pt., Level 4. * Procedure Codes: * Electronic signature of Ben Núñez MD on 06/08/2025 at 11:17 AM CDT Sign off status: Pending * Provider: Brandon NÚÑEZ M.D Date: 0 05/14/2025 Generated for Dayne smith/Lucien/Demetris on: 0 06/08/2025 11:17 AM CDT
[2025-06-08 10:36] VITALS: BP 126/57; PULSE 96; RESP 15; TEMP 36.9; O2SAT 100
--- NOTE | 2025-06-08 10:54 | ED.GENADULT ---
HPI - General Adult General Chief complaint: Skin/Abscess/Foreign Body Stated complaint: skin infection L abd Time Seen by Provider: 06/08/25 10:54 Source: patient Mode of arrival: ambulatory Limitations: no limitations History of Present Illness HPI narrative: 84 YEARS OLD MALE CAME WITH RASH AT THE LEFT UPPER ABDOMEN AND LEFT MIDDLE BACK STARTED 3 DAYS AGO WITH MINIMAL ITCHING AND MINIMAL PAIN. PATIENT DENIES ANY FEVER OR CHILLS OR NAUSEA OR VOMITING. Related Data Home Medications ?Medication ?Instructions ?Recorded ?Confirmed ?Last Taken ?Type Lactobacillus acidophilus and 2 cap PO DAILY 02/05/21 07/11/24 02/18/22 History rhamnosus 10 billion cell capsule (Digestive Health Probiotic) calcium 600 mg (as 1 tablet PO DAILY 02/05/21 07/11/24 02/18/22 History carbonate)-vitamin D3 10 mcg (400 unit) tablet (Calcium with Vitamin D) lisinopril 10 mg tablet 10 mg PO DAILY 02/05/21 07/11/24 02/18/22 History metformin 500 mg tablet 1,000 mg PO BID 02/05/21 07/11/24 02/18/22 History multivit with minerals-iron 18 1 tablet PO DAILY 02/05/21 07/11/24 02/18/22 History mg-folic ac 400 mcg-vit K 25 mcg tablet (Adults Multivitamin) omega-3 fatty acids 300 mg capsule 600 mg PO DAILY 02/05/21 07/11/24 02/04/21 History tamsulosin 0.4 mg capsule 0.8 mg PO DAILY 02/05/21 07/11/24 02/18/22 History ascorbic acid (vitamin C) 500 mg 500 mg PO DAILY 01/29/23 07/11/24 Unknown History capsule Allergies Allergy/AdvReac Type Severity Reaction Status Date / Time No Known Allergies Allergy Verified 06/08/25 10:38 Review of Systems Review of Systems: All systems reviewed & are unremarkable except as noted in HPI and below PMFSH Past Medical History Medical History History of colon cancer Anemia in CKD (chronic kidney disease) Macrocytic anemia Colon cancer Renal insufficiency HTN (hypertension), benign Social History Social History Smoking packs per day: 0.3 Smoking cigarettes per day: 6.0 Years smoked: 50 Smoking pack-years: 15.00 Smoking status: Current every day smoker Tobacco type: cigarettes Alcohol intake: never Substance use: never Substance use type: does not use Lack of Transportation: No Lack of Food: Never True Current Housing: I Have Housing Concerned About Future Housing: No Difficulty Paying Gas/Electric Bills: No Difficulty Paying for Meds: No Currently Unemployed: No Education: Master's Degree or Higher Difficulty w/ Childcare or Family Care: No Living arrangements: with family Gender identity (if verbalized by the patient): Male Spiritual care concerns: No Exam Narrative: GENERAL APPEARANCE: WELL-DEVELOPED, WELL-NOURISHED SKIN: MULTIPLE BLISTERS ON ERYTHEMATOUS BASE IN LINEAR DISTRIBUTION LEFT UPPER QUADRANT AND LEFT MID BACK, DOES NOT CROSS MIDLINE ANTERIORLY OR POSTERIORLY HEAD: NORMOCEPHALIC, NONTRAUMATIC EYES: CLEAR CONJUNCTIVA ENT: OROPHARYNX NORMAL, EARS NORMAL, NOSE NORMAL NECK: SUPPLE, NONTENDER CHEST AND RESPIRATORY: AIRWAY PATENT, NO RESPIRATORY DISTRESS, NO ACCESSORY MUSCLE USE HEART: REGULAR RATE/RHYTHM ABDOMEN: SOFT, NONTENDER, NO ORGANOMEGALY, QUIET BOWEL SOUNDS VASCULAR: NORMAL PERIPHERAL PULSES, NORMAL CAPILLARY REFILL. MUSCULOSKELETAL: NORMAL RANGE OF MOTION, NONTENDER BACK NEUROLOGIC: ALERT AND ORIENTED ?3, CONTROL SYSTEMS TECHNICIAN IS NORMAL TESTED, NO GROSS MOTOR DEFICIT Course Vital Signs Vital signs: Vital Signs Temperature 36.9 C 06/08/25 10:36 Pulse Rate 96 06/08/25 10:36 Respiratory Rate 15 06/08/25 10:36 Blood Pressure 126/57 L 06/08/25 10:36 Pulse Oximetry 100 06/08/25 10:36 Oxygen Delivery Room Air 06/08/25 10:36 Temperature 36.9 C 06/08/25 10:36 Pulse Rate 96 06/08/25 10:36 Respiratory Rate 15 06/08/25 10:36 Blood Pressure 126/57 L 06/08/25 10:36 Pulse Oximetry 100 06/08/25 10:36 Oxygen Delivery Room Air 06/08/25 10:36 Medical Decision Making [facility] Narrative Medical decision making narrative: PATIENT CAME TO THE ED WITH SHINGLES, LABS AND IMAGING ARE NOT REQUIRED AT THIS TIME, DISCHARGED ON VALTREX AND UKHW-INL-QCTGNPT CALAMINE LOTION Vital Signs Vital Signs: Vital Signs Temperature 36.9 C 06/08/25 10:36 Pulse Rate 96 06/08/25 10:36 Respiratory Rate 15 06/08/25 10:36 Blood Pressure 126/57 L 06/08/25 10:36 Pulse Oximetry 100 06/08/25 10:36 Oxygen Delivery Room Air 06/08/25 10:36 Temperature 36.9 C 06/08/25 10:36 Pulse Rate 96 06/08/25 10:36 Respiratory Rate 15 06/08/25 10:36 Blood Pressure 126/57 L 06/08/25 10:36 Pulse Oximetry 100 06/08/25 10:36 Oxygen Delivery Room Air 06/08/25 10:36 Critical Care Time Critical Care Time Critical Care Time: No Discharge Plan Discharge Clinical Impression: Shingles Patient Disposition: Home Condition: Stable Instructions: [facility] (ED) Additional Instructions: RETURN IF SYMPTOMS ARE WORSENING , CALL YOUR FAMILY PHYSICIAN FOR APPOINTMENT, TAKE TYLENOL NEEDED FOR ACHES AND PAIN, CONTINUE HOME MEDICATIONS. [id number] CALAMINE LOTION Patient Language: Andorran Prescriptions: New valacyclovir [Valtrex] 1 gram tablet 1,000 mg PO Q8H Qty: 21 0RF No Action mupirocin 2 % ointment 1 applic topical .COMPLEX Qty: 22 3RF Rx Instructions: 4-6x daily for 1-2 weeks then cut back to 1-2x per day ascorbic acid (vitamin C) 500 mg capsule 500 mg PO DAILY Patient Comments: ..... metformin 500 mg tablet 1,000 mg PO BID tamsulosin 0.4 mg capsule 0.8 mg PO DAILY lisinopril 10 mg tablet 10 mg PO DAILY Patient Comments: . calcium carbonate-vitamin D3 [Calcium with Vitamin D] 600 mg(1,500mg) -400 unit Tablet 1 tablet PO DAILY Fish Oil 300 mg Capsule 600 mg PO DAILY Adults Multivitamin 18 mg iron-400 mcg-25 mcg Tablet 1 tablet PO DAILY Digestive Health Probiotic 10 billion cell Capsule 2 cap PO DAILY Follow-up/Referrals: UNKNOWN,DOCTOR [Primary Care Provider]
--- OUTSIDE RECORDS SUMMARY | 2025-06-08 11:17 | XMS_ITS | Clinical Summary ---
Author Organization [facility] Address [address] [place] [address] Care Team Providers Care Tankerman Name Role Phone Jose Armando Izaguirre MD Primary Care Provider Source Comments [facility],non-owned Affiliates and Associated Physician Practices is amultiple site organization consisting of ambulatory clinics and hospital sitesin [place], [place] and [place]. This disclosure is being madepursuant to the Care Everywhere program and may not contain all information available regarding this patient. Last updated 18.[facility] Allergies No known active allergies Medications * Be aware that medications may not be up to date on this document. Alwaysverify current medications with the patient. b-complex-c capsule Take 1 capsule by mouth once daily Active Calcium Citrate-Vitamin D (CALCIUM + D PO) Take 600 mg by mouth once daily Active finasteride (PROSCAR) 5 MG tablet Take 5 mg by mouth once daily Active lisinopril (PRINIVIL; ZESTRIL) 10 MG tablet Take 10 mg by mouth once daily Active MAGNESIUM PO Take 500 mg by mouth once daily Active metFORMIN (GLUCOPHAGE) 500 MG tablet Take 500 mg by mouth every morning Active [place]-3 1000 MG Take 1 capsule by mouth once daily Active oxybutynin (DITROPAN) 5 MG tablet Take 5 mg by mouth at bedtime Active SITagliptin-met FORMIN (JANUMET) 50-500 MG tablet Take 1 tablet by mouth 2 times daily with morning and evening meal Active tamsulosin (FLOMAX) 0.4 MG capsule Take 0.4 mg by mouth at bedtime Active Multiple Vitamin Take 1 tablet by mouth once daily Active Aspirin 81 MG Take 1 tablet by mouth once daily 09/01/2018 Active Active Problems No known active problems Social History Tobacco Use Types Packs/Day Years Used Date Smoking Tobacco: Every Day Smokeless Tobacco: Never Tobacco Cessation:Ready to Q uit: Yes Comments:Trying too.Down 10 cigarettes per day. 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 Male 2:25 PM COMMISSION CLERK Gender Identity Not on file Sexual Orientation Not on file Last Filed Vital Signs Vital Sign Reading Time Taken Comments Blood Pressure 132/58 08/31/2018 3:40 PM COMMISSION CLERK Pulse 90 08/31/2018 3:40 PM COMMISSION CLERK Temperature 37.1 C (98.7 F) 08/31/2018 3:40 PM COMMISSION CLERK Respiratory Rate 15 08/31/2018 3:40 PM COMMISSION CLERK Oxygen Saturation 95% 08/31/2018 3:40 PM COMMISSION CLERK Inhaled Oxygen Concentration 21% 08/31/2018 1 2:15 PM COMMISSION CLERK Weight 76.2 kg (168 lb) 08/31/2018 12:15 PM COMMISSION CLERK Height 175.3 cm (5' 9) 08/29/2018 9:55 AM COMMISSION CLERK Body Mass Index 24.81 08/29/2018 9:55 AM COMMISSION CLERK Plan of Treatment Health Maintenance Due Date Last Done Comments DTAP/TDAP/TD VACCINES (1 - Tdap) 12/28/1959 PNEUMOCOCCAL VACCINE 50+ (1 of 1 - PCV) 1990 ZOSTER VACCINE (1 of 2) 1990 Respiratory Syncytial Virus (RSV) Vaccine Pt: or over 60 yrs (1 - 1-dose 75+ series) 12/28/2015 DEPRESSION SCREENING 09/27/2024 COVID-19 VACCINE (1 - 2023-2 5 season) 2025 INFLUENZA VACCINE (#1) 2025 HEPATITIS B VACCINE Aged Out No longe r eligible based on patient's age to complete this topic HIB VACCINE Aged Out No longer eligi ble based on patient's age to complete this topic HPV VACCINE Aged Out No longer eligi ble based on patient's age to complete this topic MENINGOCOCCAL (Group B) VACC INE SHARED DECISION-MAKING Aged Out No longer eligibl e based on patient's age to complete this topic MENINGOCOCCAL GROUPS A/C/Y/W VACCINE Aged Out No longer eligible b ased on patient's age to complete this topic Insurance [facility] MANAGED MEDICARE ADV Care Teams Tankerman Relationship Specialty Start Date End Date Jose Armando Izaguirre MD [address] [id number] PCP - General 05/12/21
--- OUTSIDE RECORDS SUMMARY | 2025-06-08 11:17 | XMS_ITS | Patient Health Record ---
Author Organization [facility] [facility] Address [address] [place] [address] Care Team Providers Care Assistant Professor Of Education Name Role Phone Richa Mendoza Unavailable [phone] Results Component Value Reference Range Notes PTH, INTACT AND CALCIUM (883 7) (Not yet reviewed by provider) Interpretation: Performing Lab:MARIA ESTHER FriendFit-Twincj62971 Cipriano LindaaKS[address] Mary Ingram MD Notes/Report: FASTING: YES FASTING:YES PARATHYROID HORMONE, INTACT 26 16-77 pg/mL Interpretive Guide Intact PTH Calcium ------- Normal Parathyroid Normal Normal Hypoparathyroidism Low or Low Normal Low Hyperparathyroidism Primary Normal or High High Secondary High Normal or Low Tertiary High High Non-Parathyroid Hypercalcemia Low or Low Normal High CALCIUM 9.7 8.6-10.3 mg/dL RENAL FUNCTION PANEL (67694) (Not yet reviewed by provider) Interpretation: Performing Lab:MADDIE [facility]FitTwo [facility] HospitalAmjpn[address] Mary Ingram Notes/Report: FASTING:YES FASTING: YES GLUCOSE 106 65-99 mg/dL Fasting reference interval For someone without known diabetes, a glucose value between 100 and 125 mg/dL is consistent with prediabetes and should be confirmed with a follow-up test. UREA NITROGEN (BUN) 58 7-25 mg/dL CREATININE 1.74 0.70-1.22 mg/dL EGFR 38 > OR = 60 mL/min/1.73m2 BUN/CREATININE RATIO 33 6-22 (calc) SODIUM 134 135-146 mmol/L POTASSIUM 5.7 3.5-5.3 mmol/L CHLORIDE 105 98-110 mmol/L CARBON DIOXIDE 23 20-32 mmol/L CALCIUM 9.7 8.6-10.3 mg/dL PHOSPHATE ( PHOSPHORUS) 3.5 2.1-4.3 mg/dL ALBUMIN 4.0 3.6-5.1 g/dL URIC ACID (905) (Not yet rev iewed by provider) Interpretation: Performing Lab:MADDIE FriendFitKenn[place] [id number] [address] Ty Perez CtsqpihLA[address] Mary Ingram Notes/Report: FASTING:YES FASTING: YES URIC ACID 8.1 4.0-8.0 mg/dL Therapeutic ta rget for gout patients: <6.0 mg/dL IRON AND TOTAL IRON BINDING CAPACITY (7573) (Not yet reviewed by provider) Interpretation: Performing Lab:MARIA ESTHER FriendFit-Twwlww13766 Yaa [place], GgjtusPK[address] Mary Ingram MD Notes/Report: FASTING:YES FASTING: YES IRON, TOTAL 66 50-180 mcg/dL IRON BINDING CAPACITY 252 250-425 mcg/dL (loreto c) % SATURATION 26 20-48 % (calc) CBC (INCLUDES DIFF/PLT) (399 9) (Not yet reviewed by provider) Interpretation: Performing Lab:MADDIE [place] [address] [address] Peer[address] [place] [address] Mary Ingram Notes/Report: FASTING:YES FASTING: YES WHITE BLOOD CELL COUNT 7.2 3.8-10.8 Thousand/ uL RED BLOOD CELL COUNT 3.20 4.20-5.80 Million/uL HEMOGLOBIN 10.5 13.2-17.1 g/dL HEMATOCRIT 32.5 38.5-50.0 % MCV 101.6 80.0-100.0 fL MCH 32.8 27.0-33.0 pg MCHC 32.3 32.0-36.0 g/dL For adults, a slight decrease in the calculated MCHC value (in the range of 30 to 32 g/dL) is most likely not clinically significant; however, it should be interpreted with caution in correlation with other red cell parameters and the patient's clinical condition. RDW 13.1 11.0-15.0 % PLATELET COUNT 231 140-400 Thousand/uL MPV 10.7 7.5-12.5 fL ABSOLUTE NEUTROPHILS 4572 7567-0227 cells/uL ABSOLUTE LYMPHOCYTES 7670 703-9397 cells/uL ABSOLUTE MONOCYTES 576 200-950 cells/uL ABSOLUTE EOSINOPHILS 187 15-500 cells/uL ABSOLUTE BASOPHILS 29 0-200 cells/uL NEUTROPHILS 63.5 LYMPHOCYTES 25.5 MONOCYTES 8.0 EOSINOPHILS 2.6 BASOPHILS 0.4 FERRITIN (457) (Not yet revi ewed by provider) Interpretation: Performing Lab:Awilda MAYO-Ddgajv61468 Ruben Linda[address] Mary Ingram MD Notes/Report: FASTING:YES FASTING: YES FERRITIN 491 24-380 ng/mL VITAMIN D,25-OH,TOTAL,IA (17 306) (Not yet reviewed by provider) Interpretation: Performing Lab:Awilda MAYOa10101 Ruben Linda[address] Mary Ingram MD Notes/Report: FASTING:YES FASTING: YES VITAMIN D,25-OH,TOTAL,IA 43 30-100 ng/mL Vitamin D Status 25-OH Vitamin D: Deficiency: <20 ng/mL Insufficiency: 20 - 29 ng/mL Optimal: > or = 30 ng/mL For 25-OH Vitamin D testing on patients on D2-supplementation and patients for whom quantitation of D2 and D3 fractions is required, the QuestAssureD(TM) 25-OH VIT D, (D2,D3), LC/MS/MS is recommended: order code 68903 (patients >2yrs). See Note 1 Note 1 For additional information, please refer to http://education.Arthena.SMS [employer]/faq/GNN359 (This link is being provided for informational/ educational purposes only.) RENAL FUNCTION PANEL (45724) (Not yet reviewed by provider) Interpretation: Performing Lab:MADDIE FriendFitTwo [facility] HospitalTahie96663 [address] Ty Perez QnvswvpQB[address] Mary Ingram Notes/Report: GLUCOSE 105 65-99 mg/dL Fasting reference interval For someone without known diabetes, a glucose value between 100 and 125 mg/dL is consistent with prediabetes and should be confirmed with a follow-up test. UREA NITROGEN (BUN) 40 7-25 mg/dL CREATININE 2.01 0.70-1.22 mg/dL EGFR 32 > OR = 60 mL/min/1.73m2 BUN/CREATININE RATIO 20 6-22 (calc) SODIUM 136 135-146 mmol/L POTASSIUM 5.0 3.5-5.3 mmol/L CHLORIDE 106 98-110 mmol/L CARBON DIOXIDE 21 20-32 mmol/L CALCIUM 8.9 8.6-10.3 mg/dL PHOSPHATE ( PHOSPHORUS) 3.4 2.1-4.3 mg/dL ALBUMIN 3.8 3.6-5.1 g/dL PROTEIN, TOTAL W/CREAT, RAND OM URINE (1715) (Not yet reviewed by provider) Interpretation: Performing Lab: FriendFitRe[place] [address] [address] Notes/Report: CREATININE, RANDOM URINE 134 20-320 mg/dL PROTEIN/CREATININE RATIO 784 25-148 mg/g crea t PROTEIN/CREATININE RATIO 0.784 0.025-0 .148 mg/mg creat PROTEIN, TOTAL, RANDOM UR 105 5-25 mg/dL CBC (INCLUDES DIFF/PLT) (639 9) (Not yet reviewed by provider) Interpretation: Performing Lab:MADDIE [place] [address] [address] [id number] [facility] Notes/Report: WHITE BLOOD CELL COUNT 8.5 3.8-10.8 Thousand/ uL RED BLOOD CELL COUNT 2.78 4.20-5.80 Million/uL HEMOGLOBIN 9.2 13.2-17.1 g/dL HEMATOCRIT 27.9 38.5-50.0 % MCV 100.4 80.0-100.0 fL MCH 33.1 27.0-33.0 pg MCHC 33.0 32.0-36.0 g/dL For adults, a slight decrease in the calculated MCHC value (in the range of 30 to 32 g/dL) is most likely not clinically significant; however, it should be interpreted with caution in correlation with other red cell parameters and the patient's clinical condition. RDW 12.9 11.0-15.0 % PLATELET COUNT 211 140-400 Thousand/uL MPV 10.6 7.5-12.5 fL ABSOLUTE NEUTROPHILS 5644 4609-7452 cells/uL ABSOLUTE LYMPHOCYTES 9404 659-4677 cells/uL ABSOLUTE MONOCYTES 986 200-950 cells/uL ABSOLUTE EOSINOPHILS 145 15-500 cells/uL ABSOLUTE BASOPHILS 43 0-200 cells/uL NEUTROPHILS 66.4 LYMPHOCYTES 19.8 MONOCYTES 11.6 EOSINOPHILS 1.7 BASOPHILS 0.5 HEMOGLOBIN A1c (496) (Not ye t reviewed by provider) Interpretation: Performing Lab:Awilda PERKINSTwo Rivers Psychiatric HospitalEwzoh79173 Administration Ty Perze FaodccmTM[address] Mary Ingram Notes/Report: HEMOGLOBIN A1c 6.8 <5.7 % of total Hgb For someone without known diabetes, a hemoglobin A1c value of 6.5% or greater indicates that they may have diabetes and this should be confirmed with a follow-up test. For someone with known diabetes, a value <7% indicates that their diabetes is well controlled and a value greater than or equal to 7% indicates suboptimal control. A1c targets should be individualized based on duration of diabetes, age, comorbid conditions, and other considerations. Currently, no consensus exists regarding use of hemoglobin A1c for diagnosis of diabetes for children. VITAMIN B12/FOLATE, SERUM PA TITO (5076) (Not yet reviewed by provider) Interpretation: Performing Lab:Awilda MAYO-Mnpfhe26164 Yaa [place], RkhrcbFW[address] Mary Ingram MD Notes/Report: VITAMIN B12 5187 426-0884 pg/mL FOLATE, SERUM >24.0 Reference Range Low: <3.4 Borderline: 3.4-5.4 Normal: >5.4 FERRITIN (457) (Not yet revi ewed by provider) Interpretation: Performing Lab:Awilda MAYO-Lgkptr92371 Yaa [place], ZnkaruSA[address] Mary Ingram MD Notes/Report: FERRITIN 578 24-380 ng/mL VITAMIN D,25-OH,TOTAL,IA (17 306) (Not yet reviewed by provider) Interpretation: Performing Lab:Awilda MAYO-Swpfwn00174Obi [place], WajlnpHL[address] Mary Ingram MD Notes/Report: VITAMIN D,25-OH,TOTAL,IA 37 30-100 ng/mL Vitamin D Status 25-OH Vitamin D: Deficiency: <20 ng/mL Insufficiency: 20 - 29 ng/mL Optimal: > or = 30 ng/mL For 25-OH Vitamin D testing on patients on D2-supplementation and patients for whom quantitation of D2 and D3 fractions is required, the [facility]() 25-OH VIT D, (D2,D3), LC/MS/MS is recommended: order code 00596 (patients >2yrs). See Note 1 Note 1 For additional information, please refer to http://education.[employer]/faq/AZJ130 (This link is being provided for informational/ educational purposes only.) CULTURE, URINE, ROUTINE (395 ) (Not yet reviewed by provider) Interpretation: Performing Lab:MADDIE FriendFitRe[place] [address] [address] Notes/Report: CULTURE, URINE, ROUTINE SEE NOTE CULTURE, URINE, ROUTINE Micro Number: [id number] Test Status: Final Specimen Source: Urine Specimen Quality: Adequate Result: Mixed genital sera isolated. These superficial bacteria are not indicative of a urinary tract infection. No further organism identification is warranted on this specimen. If clinically indicated, recollect clean-catch, mid-stream urine and transfer immediately to Urine Culture Transport Tube. REFLEXIVE URINE CULTURE (Not yet reviewed by provider) Interpretation: Performing Lab:Awilda PERKINS [employer] [address] [address] Notes/Report: REFLEXIVE URINE CULTURE CULT URE INDICATED - RESULTS TO FOLLOW URINALYSIS, COMPLETE W/REFLE X TO CULTURE (3020) (Not yet reviewed by provider) Interpretation: Performing Lab:Awilda PERKINSRebecca Ville [address] [address] Notes/Report: COLOR YELLOW YELLOW APPEARANCE CLOUDY CLEAR SPECIFIC GRAVITY 1.018 1.001-1.035 PH < OR = 5.0 5.0-8.0 GLUCOSE NEGATIVE NEGATIVE BILIRUBIN NEGATIVE NEGATIVE KETONES TRACE NEGATIVE OCCULT BLOOD NEGATIVE NEGATIVE PROTEIN 2+ NEGATIVE NITRITE POSITIVE NEGATIVE LEUKOCYTE ESTERASE 3+ NEGATIVE WBC > OR = 60 < OR = 5 /HPF RBC NONE SEEN < OR = 2 /HPF SQUAMOUS EPITHELIAL CELLS 0-5 < OR = 5 /HPF BACTERIA MODERATE NONE SEEN /HPF HYALINE CAST 6-10 NONE SEEN /LPF NOTE This urine was analyzed for the presence of WBC, RBC, bacteria, casts, and other formed elements. Only those elements seen were reported. PTH, INTACT AND CALCIUM (883 7) (Not yet reviewed by provider) Interpretation: Performing Lab:Awilda MAYO-Pgedjv82732 Yaa [facility], SeylfnUJ[address] Mary Ingram MD Notes/Report: PARATHYROID HORMONE, INTACT 49 16-77 pg/mL Interpretive Guide Intact PTH Calcium ------- Normal Parathyroid Normal Normal Hypoparathyroidism Low or Low Normal Low Hyperparathyroidism Primary Normal or High High Secondary High Normal or Low Tertiary High High Non-Parathyroid Hypercalcemia Low or Low Normal High CALCIUM 8.9 8.6-10.3 mg/dL MAGNESIUM (622) (Not yet rev iewed by provider) Interpretation: Performing Lab:MADDIE [place] [address] [address] Perez HmgrkzfWG[address] Mary Ingram Notes/Report: MAGNESIUM 1.9 1.5-2.5 mg/dL URIC ACID (905) (Not yet rev iewed by provider) Interpretation: Performing Lab:MADDIE FriendFitRe[place] [address] [address] Perez [place] [address] SusanDrea Miranda Ingram Notes/Report: URIC ACID 7.5 4.0-8.0 mg/dL Therapeutic ta rget for gout patients: <6.0 mg/dL IRON AND TOTAL IRON BINDING CAPACITY (7573) (Not yet reviewed by provider) Interpretation: Performing Lab:MARIA ESTHER FriendFit-Srtsng63040 Yaa [facility], RqdskuVD[address] Mary Ingram MD Notes/Report: IRON, TOTAL 22 50-180 mcg/dL IRON BINDING CAPACITY 223 250-425 mcg/dL (loreto c) % SATURATION 10 20-48 % (calc) Reason For Referral No Information Medications Medication SIG (Take, Route, Frequency, Duration) Notes Start Date End Date Status Veltassa 8.4 GM 1 packet dissolved i n water. Take other medications at least 3 hours before or 3 hours after this medication Orally Once a day; Duration: 90 day(s) 01/27/2024 Active Lisinopril 10 MG TAKE 1 TABLET BY LUANA ONCE A DAY; Duration: 90 Active Janumet 50-500 MG 1 tablet with meals Orally Twice a day Active Tamsulosin HCl 0.4 MG TAKE 2 CAPSULES BY MOUTH EVERY NIGHT; Duration: 90 Active metFORMIN HCl 1000 MG 1 tablet with a me al Orally twice a day; Duration: 90 day(s) 02/09/2022 Active metFORMIN HCl 500 MG 1 tablet with a mino l Orally Once a day; Duration: 30 days Active Chlorthalidone 25 MG TAKE 1/2 TABLET BY MOUTH ONCE A DAY IN THE MORNING WITH FOOD; Duration: 90 Active Iron (Ferrous Sulfate) 325 (65 Fe) MG 1 tablet Orally every other day; Duration: 90 days 01/17/2025 Active glipiZIDE ER 5 MG TAKE 1 TABLET BY LUANA TH ONCE A DAY WITH BREAKFAST; Duration: 90 Active Solifenacin Succinate 5 MG TAKE 1 TABLET BY MOUTH EVERY DAY; Duration: 90 Active glipiZIDE 5 MG 1 tablet 30 minutes before breakfast Orally Once a day; Duration: 30 day(s) 08/02/2023 Active Iron (Ferrous Sulfate) 325 (65 Fe) MG 1 tablet Orally every other day; Duration: 90 days 01/15/2025 Active Social History Sex Assigned At : Social History Observation Description Sex Assigned At Male Problems Problem Type SNOMED Code ICD Code Onset Dates Problem Status W/U Status Risk Notes Problem Anemia (651789181) Anemia, unspecified (D64.9) Active confirmed Problem Hyperglycemia due to type 2 diabetes mellitus (883155728432307) Type 2 diabetes mellitus with hyperglycemia (E11.65) Active confirmed Problem Hyperlipidemia (96309528) Hyperlipidemia, unspecified (E78.5) Active confirmed Problem Hyperkalemia (08127675) Hyperkalemia (E87.5) Active confirmed Problem Essential hypertension (64212783) Essential (primary) hypertension (I10) Active confirmed Problem Chronic kidney disease stage 2 (939451034) Chronic kidney disease, stage 2 (mild) (N18.2) Active confirmed Problem Lower urinary tract symptoms due to benign prostatic hypertrophy (34109151625499) Benign prostatic hyperplasia with lower urinary tract symptoms (N40.1) Active confirmed Problem Chronic kidney disease stage 3B (disorder) (432537013) Chronic kidney disease, stage 3b (N18.32) Active confirmed Problem Low back pain (387381548) Low back pain, unspecified (M54.50) Active confirmed Encounters Encounter Location Date Provider Diagnosis [facility] [place] [facility] [address] [place] [address] 09/11/2024 Richa Kelly Chronic kidney disease, stage 3b N18.32 ; Type 2 diabetes mellitus with hyperglycemia E11.65 ; Low back pain, unspecified M54.50 and Benign prostatic hyperplasia with lower urinary tract symptoms N40.1 [place] [facility] [address] [address] 01/15/2025 Richa Kelly Chronic kidney disease, stage 3b N18.32 ; Type 2 diabetes mellitus with hyperglycemia E11.65 ; Anemia, unspecified D64.9 and Hyperkalemia E87.5 [place] [facility] [address] [address] 05/14/2025 Richa Kelly Chronic kidney disease, stage 3b N18.32 ; Type 2 diabetes mellitus with hyperglycemia E11.65 ; Essential (primary) hypertension I10 and Hyperkalemia E87.5 [facility] [place] [facility] [address] [place] [address] 01/15/2025 Richa Kelly [facility] [place] [facility] [address] [place] [address] 01/17/2025 Richa Kelly Assessments Encounter Date Diagnosis (ICD Code) Assessment Notes Treatment Notes Treatment Clinical Notes Section Notes 09/11/2024 Chronic kidney disease, stage 3b (ICD-10 - N18.32) 01/15/2025 Chronic kidney disease, stage 3b (ICD-10 - N18.32) 05/14/2025 Chronic kidney disease, stage 3b (ICD-10 - N18.32) 05/14/2025 Type 2 diabetes mellitus with hyperglycemia (ICD-10 - E11.65) 01/15/2025 Type 2 diabetes mellitus with hyperglycemia (ICD-10 - E11.65) 09/11/2024 Type 2 diabetes mellitus with hyperglycemia (ICD-10 - E11.65) 09/11/2024 Low back pain, unspecified (ICD-10 - M54.50) 01/15/2025 Anemia, unspecified (ICD-10 - D64.9) 05/14/2025 Essential (primary) hypertension (ICD-10 - I10) 01/15/2025 Hyperkalemia (ICD-10 - E87.5) 05/14/2025 Hyperkalemia (ICD-10 - E87.5) 09/11/2024 Benign prostatic hyperplasia with lower urinary tract symptoms (ICD-10 - N40.1) Plan Of Treatment Pending Test Test Name Order Date PTH, INTACT AND CALCIUM (8837) PTH, INTACT AND CALCIUM (8837) RENAL FUNCTION PANEL (16735) 09/11/2024 RENAL FUNCTION PANEL (05171) 01/08/2025 RENAL FUNCTION PANEL (22372) 05/08/2025 MAGNESIUM (622) 01/08/2025 URIC ACID (905) 01/08/2025 URIC ACID (905) 05/08/2025 IRON AND TOTAL IRON BINDING CAPACITY (75 73) 05/08/2025 IRON AND TOTAL IRON BINDING CAPACITY (75 73) 01/08/2025 PROTEIN, TOTAL W/CREAT, RANDOM URINE (17 15) 01/08/2025 CBC (INCLUDES DIFF/PLT) (6399) CBC (INCLUDES DIFF/PLT) (6399) URINALYSIS, COMPLETE W/REFLEX TO CULTURE (3020) 01/08/2025 HEMOGLOBIN A1c (496) 01/08/2025 VITAMIN B12/FOLATE, SERUM PANEL (7065) 0 01/08/2025 FERRITIN (457) 01/08/2025 FERRITIN (457) 05/08/2025 VITAMIN D,25-OH,TOTAL,IA (71032) 025 VITAMIN D,25-OH,TOTAL,IA (61404) 025 CULTURE, URINE, ROUTINE (395) 01/08/2025 REFLEXIVE URINE CULTURE 01/08/2025 Future Test Test Name Order Date RENAL FUNCTION PANEL (86869) 11/07/2024 Next Appt Details Provider Name:Richarafael tanner, 09/10/2025 02:30:00 PM, [address], [place], [address],
--- OUTSIDE RECORDS SUMMARY | 2025-06-08 11:17 | XMS_ITS | Encounter Summary ---
Author Organization [facility] Address [address] [facility] [address] [place] [address] Care Team Providers Care Nuclear Officer Name Role Phone Jose Armando Izaguirre MD Primary Care Provider Encounter Details Date Type Department Care Team (Late st Contact Info) Description 02/05/2021 Lab Requisition [facility] Care Pathology Lab [address] [place] [address] Lowell Pak MD [address] [address] Anemia, unspecified Social History Tobacco Use Types Packs/Day Years Used Date Smoking Tobacco: Every Day Smokeless Tobacco: Never Comments:Trying too.Down 10 cigarettes per day. 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[employer] Gender Identity Not on file Sexual Orientation Not on file documented as of this encounter Plan of Treatment Not on file documented as of this encounter Procedures Procedure Name Priority Date/Time Associated Diagnosis Comments FLOW CYTOMETRY BONE MARROW Routine 02/05/2021 8:50 AM CDT Anemia, unspecified documented in this encounter Results * FLOW CYTOMETRY BONE MARROW (02/05/2021 8:50 AM CDT) Case Report Flow Cytometry Case: [id number] Authorizing Provider: Lowell Pak MD Collected: 02/05/2021 08:50 AM Ordering Location: [facility] Care Pathology Lab Received: 02/05/2021 01:35 PM Pathologist: Kayce Blue MD Specimen: Bone Marrow 02/05/2021 4:28 PM [facility] Final Diagnosis Bone marrow, flow cytometry: - No clonal B-cell or increased blast population detected 02/05/2021 4:28 PM [facility] at 1628 CDT Flow Cytometry Interpretation The bone marrow specimen has a viability of 96%. The lymphocyte, dim CD45, monocyte, and granulocyte hirsch are normal in relative proportion. Within the lymphocyte gate, there is no monotypic B-cell population identified (kappa: lambda ratio = 2:1). There is no expanded T-cell population seen. By CD34, <2% of all events analyzed are blasts. A bone marrow aspirate smear prepared from the flow cytometry specimen is reviewed for quality auditor purposes. 02/05/2021 4:28 PM [facility] Flow Cytometry Results Differential Result Comment Flow Cell Count /uL 62,800 Total Viability % 96.0 Lymphocytes % 44 Dim CD45 Region % 7 Monocytes % 19 Granulocytes % 30 02/05/2021 4:28 PM [facility] Reason for test Anemia, unspecified 285.9 02/05/2021 4:28 PM [facility] Client Specimen ID # [id number] 02/05/2021 4:28 PM [facility] Number of markers 19 were performed. A-2 Flow CD10 A-3 Flow CD13 A-5 Flow CD20 A-11 Flow CD2 A-13 Flow CD14 A-16 Flow CD117 A-17 Flow CD11b A-18 Flow CD11c A-1 Flow CD5 A-4 Flow CD19 A-6 Flow CD33 A-7 Flow CD34 A-8 Flow CD45 A-12 Flow CD7 A-14 Flow CD56 A-15 Flow CD64 A-9 [place]+CD19+ A-10 Lambda+CD19+ A-19 Flow HLA-DR 02/05/2021 4:28 PM [facility] Disclaimer Test performed at [facility], [address] [place] [address], [address]. *The established laboratory minimum viability is 70%. Values below the minimum may result in the failure to find an abnormal population of cells. This test was developed and its performance characteristics determined by the Flow Cytometry Laboratory. It has not been cleared by the [place] Food and Drug Administration (FDA). The FDA has determined that such clearance or approval is not necessary. This test is used for clinical purposes. It should not be regarded as investigational or for research. This laboratory is regulated under the Clinical Laboratory Improvement Amendments of 1998 (CLIA) as a qualified to perform high complexity clinical testing. 02/05/2021 4:28 PM CDT [facility] Embedded Images 4:28 PM CDT [facility] Pathology/Cytolo gy BONE MARROW SPECIMEN / Unknown 02/05/2021 8:50 AM CDT 02/05/2021 1:35 PM CDT Lowell Pak MD LAB - PATHOLOGY/CYTOLOGY ORDER HERMINIA Final Result Performing Organization Address City/State/[facility] de Phone Number [facility] [address] [phone] documented in this encounter Visit Diagnoses Diagnosis Anemia, unspecified documented in this encounter Care Teams Nuclear Officer Relationship Specialty Start Date End Date Jose Armando Izaguirre MD [address] [phone] PCP - General 05/12/21 documented as of this encounter
--- OUTSIDE RECORDS SUMMARY | 2025-06-08 11:17 | XMS_ITS | Encounter Summary ---
Author Organization [facility] Address [address] [facility] [place] [address] Care Team Providers Care Route Driver Coin Machines Name Role Phone Jose Armando Izaguirre MD Primary Care Provider Encounter Details Date Type Department Care Team (Late st Contact Info) Description 02/07/2021 Lab Requisition [facility] Pathology Lab [address] [place] [address] Lowell Pak MD [address] [address] Illness, unspecified Social History Tobacco Use Types Packs/Day Years Used Date Smoking Tobacco: Every Day Smokeless Tobacco: Never Comments:Trying too.Down 10 cigarettes per day. 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 Gender Identity Not on file Sexual Orientation Not on file documented as of this encounter Plan of Treatment Not on file documented as of this encounter Procedures Procedure Name Priority Date/Time Associated Diagnosis Comments BONE MARROW BIOPSY (STL) Routine 02/05/2021 9:30 AM CDT Illness, unspecified documented in this encounter Results * BONE MARROW BIOPSY (STL) (02/05/2021 9:30 AM CDT) Case Report Bone Marrow Patholog y Report Case: [id number] Authorizing Provider: Lowell Pak MD Collected: 02/05/2021 09:30 AM Ordering Location: [facility] Pathology Lab Received: 02/07/2021 09:22 AM Pathologist: Kayce Blue MD Specimens: A) - Bone Marrow Clot B) - Bone Marrow Core C) - Bone Marrow Aspirate 02/07/2021 11:45 AM [facility] Final Diagnosis Bone marrow, aspirate, clot section, and core biopsy: - Mildly hypocellular marrow with maturing trilineage hematopoiesis. - No evidence of lymphoma or high-grade myeloid neoplasm. - See description. Peripheral blood smear: - Normocytic anemia. - See description. 02/07/2021 11:45 AM [facility] PATH[facility] at 1145 CDT AP Comment Overall findings are those of a mildly hypocellular marrow for age with normally maturing trilineage hematopoiesis. No morphologic features of dysplasia are appreciated. 02/07/2021 11:45 AM [facility] Peripheral Smear Description RBC: normocytic anemia WBC: normal in number with a rare immature granulocyte, no dysplasia seen Platelets: normal in number and morphology 02/07/2021 11:45 AM [facility] Bone Marrow Aspirate Differential count (200 cells): not performed due to hemodilution Specimen quality: hemodilute. Spicules: none. Some erythroid and myeloid precursor cells are seen, and these show no overt dysplasia. Furthermore, no increase in blasts is appreciated. A rare megakaryocyte is present, normal in appearance. Storage iron (by special stain): stores not evaluable due to lack of spicules. Sideroblastic iron (by special stain): no ring sideroblasts. 02/07/2021 11:45 AM [facility] Bone Marrow Core Biopsy and Clot Section Description Specimen quality: adequate with 2.2 cm of evaluable marrow. Cellularity: 20 % Trilineage Hematopoiesis: present. Myeloid to Erythroid ratio: normal. Myeloid maturation and localization: normal. Erythroid maturation and localization: normal. Megakaryocyte number: normal. Megakaryocyte distribution: normal. Lymphoid aggregates: absent. Bone trabeculae: thin. Blood vessels: normal. Plasma cells: normal. Clot section marrow particles: few. Clot section morphology: similar to core biopsy. The iron stain shows decreased iron stores. 02/07/2021 11:45 AM [facility] Flow Cytometry Summary [id number]: no aberrancies identified. 02/07/2021 11:45 AM CDT [facility] PATH[facility] Clinical History Normocytic anemia. R/O MDS. 02/07/2021 11:45 AM CDT [facility] Materials Received Received are 19 slide(s) and 4 block(s) labeled [id number] along with a copy of the outside pathology report. The materials originate from [place], [place]. All original materials are returned to the referring institution, along with a copy of our final report. 02/07/2021 11:45 AM T [facility] Disclaimer The performance characteristics of all immunohistochemical and indirect immunofluorescence stains (if any) cited in this report were determined by the [facility]. Some of these tests were developed by our own laboratory and have not been cleared or approved by the US Food and Drug Administration. The FDA does not require this test to go through premarket FDA review. These tests are used for clinical purposes. They should not be regarded as investigational or for research. This laboratory is certified under the Clinical Laboratory Improvement Amendments (CLIA) as qualified to perform high complexity clinical laboratory testing. This case has been personally reviewed and interpreted by the attending (teaching) pathologist. 02/07/2021 11:45 AM T [facility] Embedded Images 02/07/2021 11:45 AM T [facility] Pathology/Cytology SPECIMEN FROM BONE MARROW OBTAINED BY ASPIRATION / Unknown 02/05/2021 9:30 AM CDT 02/07/2021 9:22 AM CDT Miscellaneous samples (specimen) BONE MARROW SPECIMEN / Unknown 02/05/2021 9:30 AM CDT 02/07/2021 9:22 AM CDT Miscellaneous samples (specimen) SPECIMEN FROM BONE MARROW OBTAINED BY ASPIRATION / Unknown 02/05/2021 9:30 AM CDT 02/07/2021 9:22 AM CDT Lowell Pak MD LAB - PATHOLOGY/CYTOLOGY ORDER HERMINIA Final Result [facility] [address] [phone] documented in this encounter Visit Diagnoses Diagnosis Illness, unspecified documented in this encounter Care Teams Route Driver Coin Machines Relationship Specialty Start Date End Date Jose Armando Izaguirre MD [address] [address] PCP - General 05/12/21 documented as of this encounter
--- OUTSIDE RECORDS SUMMARY | 2025-06-08 11:18 | XMS_ITS | Clinical Summary ---
Author Organization [facility] Tricia holt [facility] Address [address] [address] Care Team Providers Care Undercutter Name Role Phone Jose Armando Izaguirre MD Primary Care Provider Allergies No known active allergies Medications aspirin (ECOTRIN EC) 81 mg Tablet, Delayed Release (E.C.) Take by mouth. 0 Active vitamin B complex Capsule Take by mouth. 0 Active calcium-vitamin D3 (CALTRATE 600+D) 600 mg(1,500mg) -200 unit Tablet Take 1 Tablet by mouth. Active Docosahexanoic Acid-Eicosapent 120-180 mg Capsule Take 1 Capsule by mouth. Active oxybutynin chloride (DITROPAN) 5 mg tablet oxybutynin chloride 5 mg tablet 0 Active sitaGLIPtin-met FORMIN (Janumet) 50-500 mg tablet Take 50-500 mg by mouth. 9 Active tamsulosin (FLOMAX) 0.4 mg capsule Take 0.4 mg by mouth. 0 Active Fish Oil-Hulett-3 Fatty Acids (Fish Oil) 360-1,200 mg Capsule Take by mouth. 0 Active multivitamin-mi j-lmsr-KG-vit K (Adults Multivitamin) 18 mg iron-400 mcg-25 mcg Tablet Take by mouth. 0 Active vitamin B complex (Vitamins B Complex) Capsule Take by mouth. Activ e calcium carbonate (CALCIUM 600 ORAL) CALCIUM 600 TABLET 0 Active cholecalciferol , Vitamin D3, (Vitamin D3) 50 mcg (2,000 unit) Tablet Take 600 mg by mouth daily. Active multivitamin (MULTIPLE VITAMIN ORAL) Take 1 Tablet by mouth daily. Active ferrous sulfate 325 mg (65 mg iron) tablet Take 325 mg by mouth daily. Active lisinopriL (PRINIVIL) 10 mg tablet Take by mouth. 0 Active finasteride (PROSCAR) 5 mg tablet Take 5 mg by mouth daily. Active mirabegron (Myrbetriq) 25 mg Extended Release 24 hour tablet Take 25 mg by mouth daily. Active Aminocaproic Acid (AMICAR) 500 mg tabletIndicatio ns:Macrocytic anemia,Anemia of chronic renal failure, stage 3a (CMS/HCC) TAKE 1 TABLET BY MOUTH EVERY 6 HOURS 30 Tablet 1 3 Active glipiZIDE (GLUCOTROL) 5 mg tablet TAKE ONE-HALF TABLET BY MOUTH EVERY DAY FOR 90 DAYS. 3 Active Veltassa 8.4 gram Powder in Packet powder MIX AND DRINK 1 PACKET TWO TIMES A WEEK ON MONDAYS AND FRIDAYS Active Active Problems Problem Noted Date Diagnosed Date Anemia of chronic renal failure, stage 3a 2020 Macrocytic anemia 01/14/2021 Encounters Date Type Department Care Team Description 05/29/2025 External Device Data STL ABSTRACTION Provider, Abstract 05/28/[address] [facility] Oncology and Hematology - [place] [address] [place] [address] Arnaud Lew MD Chronic anemia 05/15/2025 External Device Data STL ABSTRACTION Provider, Abstract 05/14/[address] [facility] Oncology and Hematology - Daren [address] [place] [phone] Arnaud Lew MD Chronic anemia 05/01/2025 External Device Data STL ABSTRACTION Provider, Abstract 04/30/[address] [facility] Oncology and Hematology - [place]aren [address] [place] [id number] Arnaud Lew MD Chronic anemia 04/16/[address] [facility] Oncology and Hematology - [place]aren [address] [place] [address] Arnaud Lew MD Chronic anemia 04/11/2025 External Device Data STL ABSTRACTION Provider, Abstract 04/10/2025 External Device Data STL ABSTRACTION Provider, Abstract 04/09/2025 4:30 PM CDT Telephone Check Up [facility] Oncology and Hematology - [place] [address] Arnaud Lew MD 04/02/2025 1:00 PM CDT Office Visit [facility] Oncology and Hematology - [place] [address] [place] [phone] Arnaud Lew MD Chronic anemia 03/23/[address] [facility] Oncology and Hematology - [place]aren [address] Arnaud Lew MD 03/21/[address] [facility] Oncology and Hematology - [place] [place] [phone] Arnaud Lew MD 03/20/[address] [facility] Oncology and Hematology - [place] [place] [phone] Arnaud Lew MD 03/19/[address] [facility] Oncology and Hematology - [place] [place] [phone] Arnaud Lew MD Chronic anemia (Primary Dx) 03/19/[address] [facility] Oncology and Hematology - [address] [place] [address] Arnaud Lew MD Chronic anemia from Last 3 Months Family History Relation Name Status Comments Brother Alive Father Mother Sister 1 Alive Sister 2 Alive Social History Tobacco Use Types Packs/Day Years Used Date Smoking Tobacco: Every Day Cigarettes 0.5 60.9 Started: [birth year]/11/1964 Smokeless Tobacco: Never Tobacco Cessation:Ready to Q uit: Not Asked; Counseling Given: Not Answered Alcohol Use Standard Drinks/Week Comments Never 0 (1 standard drink = 0.6 oz pur e alcohol) Sex and Gender Information Value Date Recorded Sex Assigned at Not on file Legal Sex Male 3:02 PM CDT Gender Identity Not on file Sexual Orientation Not on file Last Filed Vital Signs Vital Sign Reading Time Taken Comments Blood Pressure 123/64 04/02/2025 1:04 PM CDT Pulse 88 04/02/2025 1:04 PM CDT Temperature 36.6 C (97.9 F) 04/02/2025 1:04 PM CDT Respiratory Rate 15 04/02/2025 1:04 PM CDT Oxygen Saturation 97% 04/02/2025 1:04 PM CDT Inhaled Oxygen Concentration - - Weight 63.4 kg (139 lb 12.8 oz) 04/02/2025 1:04 PM CDT Height 175.3 cm (5' 9) 12/09/2021 2:31 PM CDT Body Mass Index 20.64 12/09/2021 2:31 PM CDT Plan of Treatment Upcoming Encounters Date Type Department Care Team (Late st Contact Info) Description 08/07/2025 1:15 PM OPTICAL MECHANIC Office Visit [facility] Oncology and Hematology [facility] [address] [facility] [address] [place] [address] Arnaud Lew MD [address] [facility] [address] [place] [address] Health Maintenance Due Date Last Done Comments DIABETES ANNUAL FOOT EXAM 1958 DIABETES ANNUAL RETINAL EXAM 1958 DIABETES MICROALBUMIN ANNUAL SCREEN 1958 LDL CHOLESTEROL ANNUAL 1958 DTAP/TDAP/TD VACCINES (1 - Tdap) 12/28/1959 ZOSTER VACCINE (1 of 2) 1990 RSV VACCINE (60+ or ) (1 - 1-dose 75+ series) 12/28/2015 DIABETES HBA1C Q 6 MONTHS 12/19/2019 06/20/2019 INFLUENZA VACCINE (#1) 2025 , 08/07/2022, 07/15/2022, Additional history exists COVID-19 Vaccine (7 - 2024-2 6 season) 2025 09/02/2023, 08/06/2022, 09/22/2021, Additional history exists COLORECTAL SCREENING Discontinued 05/06/2018 Colorectal Cancer Screening Discontinued PNEUMOCOCCAL VACCINE 50+ YEARS Completed 0 05/14/2021, 07/12/2020, 10/02/2019 FIT-DNA Q 3 years Discontinued FIT/FOBT Q 1 year Discontinued Flex Sig/CT Colonography Q 5 years Discontinued Procedures Procedure Name Priority Date/Time Associated Diagnosis Comments CBC WITH DIFFERENTIAL Routine 03/20/2025 5:31 PM CDT BASIC METABOLIC PANEL Routine 03/20/2025 5:25 PM CDT IRON LEVEL Routine 03/20/2025 11:56 AM CDT from Last 3 Months Results * CBC WITH DIFFERENTIAL (03/20/2025 5:31 PM CDT) Blood us Arnaud Lew MD HEMATOLOGY ORDERABLES Final Res ult * BASIC METABOLIC PANEL (03/20/2025 5:25 PM CDT) Blood us Arnaud Lew MD CHEMISTRY ORDERABLES Final Resu lt * IRON LEVEL (03/20/2025 11:56 AM CDT) Blood us Arnaud Lew MD CHEMISTRY ORDERABLES Final Resu lt from Last 3 Months Insurance [facility] Address: [facility] [address] [place] [address] Care Teams Undercutter Relationship Specialty Start Date End Date Jose Armando Izaguirre MD PCP - General Internal Medicine 01/14/21
--- OUTSIDE RECORDS SUMMARY | 2025-06-08 12:00 | XMS_ITS | Encounter Summary ---
Author Organization [facility] Address [address] [facility] [place] [address] Care Team Providers Care Esol Teacher Assistant Name Role Phone Jose Armando Izaguirre MD Primary Care Provider Encounter Details Date Type Department Care Team (Late st Contact Info) Description 02/07/2021 Lab Requisition [facility] Pathology Lab [address] [place] [address] Lowell Pak MD [address] [address] Illness, unspecified Social History Tobacco Use Types Packs/Day Years Used Date Smoking Tobacco: Every Day Smokeless Tobacco: Never Comments:Trying too.Down 10 cigarettes per day. 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 - No evidence of lymphoma or high-grade myeloid neoplasm. - See description. Peripheral blood smear: - Normocytic anemia. - See description. 02/07/2021 11:45 AM [facility] PATH[facility] at 1145 CDT AP Comment Overall findings are those of a mildly hypocellular marrow for age with normally maturing trilineage hematopoiesis. No morphologic features of dysplasia are appreciated. 02/07/2021 11:45 AM [facility] Peripheral Smear Description RBC: normocytic anemia WBC: normal in number with a rare immature granulocyte, no dysplasia seen Platelets: normal in number and morphology 02/07/2021 11:45 AM [facility] Bone Marrow Aspirate Differential count [...] stain): no ring sideroblasts. 02/07/2021 11:45 AM [facility] Bone Marrow Core Biopsy and [...] shows decreased iron stores. 02/07/2021 11:45 AM [facility] Flow Cytometry Summary [id number]: no aberrancies identified. 02/07/2021 11:45 AM CDT [facility] Clinical History Normocytic anemia. R/O MDS. 02/07/2021 11:45 AM CDT [facility] Materials Received Received are 19 slide(s) and 4 block(s) labeled [id number] along with a copy of the outside pathology report. The materials originate from [place], [place]. All original materials are returned to the referring institution, along with a copy of our final report. 02/07/2021 11:45 AM T [facility] Disclaimer The performance characteristics of all immunohistochemical and indirect immunofluorescence stains (if any) cited in this report were determined by the Histopathology Laboratory of [facility]. Some of these tests were developed by [...] attending (teaching) pathologist. 02/07/2021 11:45 AM T [facility] Embedded Images 02/07/2021 11:45 AM T [facility] Pathology/Cytology SPECIMEN FROM BONE [...] LAB - PATHOLOGY/CYTOLOGY ORDER HERMINIA Final Result [facility] [address] [phone] documented in this encounter Visit Diagnoses Diagnosis Illness, unspecified documented in this encounter Care Teams Esol Teacher Assistant Relationship Specialty Start Date End Date Jose Armando Izaguirre MD [address] [address] PCP - General 05/12/21 documented as of this encounter
--- OUTSIDE RECORDS SUMMARY | 2025-06-08 12:00 | XMS_ITS | Encounter Summary ---
Author Organization [facility] Address [address] [facility] [place] [address] Care Team Providers Care Pumper Gager Apprentice Name Role Phone Jose Armando Izaguirre MD Primary Care Provider Encounter Details Date Type Department Care Team (Late st Contact Info) Description 02/05/2021 Lab Requisition [facility] Care Pathology Lab [address] [place] [address] Lowell Pak MD [address] [address] Anemia, unspecified Social History Tobacco Use Types Packs/Day Years Used Date Smoking Tobacco: Every Day Smokeless Tobacco: Never Comments:Trying too.Down 10 cigarettes per day. 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 Male 2:25 PM CIGAR BANDER HAND Gender Identity Not on file Sexual Orientation [...] AM CDT) Case Report Flow Cytometry Case: [id number] Authorizing Provider: Lowell Pak MD Collected: 02/05/2021 08:50 AM Ordering Location: [facility] Care Pathology Lab Received: 02/05/2021 01:35 PM Pathologist: Kayce Blue MD Specimen: Bone Marrow 02/05/2021 4:28 PM [facility] Final Diagnosis Bone marrow, flow cytometry: - No clonal B-cell or increased blast population detected 02/05/2021 4:28 PM [facility] PATH[facility] at 1628 CDT Flow [...] flow cytometry specimen is reviewed for quality assurance/r&d lab technician purposes. 02/05/2021 4:28 PM [facility] Flow Cytometry Results Differential Result Comment Flow Cell Count /uL 62,800 Total Viability % 96.0 Lymphocytes % 44 Dim CD45 Region % 7 Monocytes % 19 Granulocytes % 30 02/05/2021 4:28 PM [facility] Reason for test Anemia, unspecified 285.9 02/05/2021 4:28 PM [facility] Client Specimen ID # [id number] 02/05/2021 4:28 PM [facility] Number of markers 19 were performed. A-2 Flow CD10 A-3 Flow CD13 A-5 Flow CD20 A-11 Flow CD2 A-13 Flow CD14 A-16 Flow CD117 A-17 Flow CD11b A-18 Flow CD11c A-1 Flow CD5 A-4 Flow CD19 A-6 Flow CD33 A-7 Flow CD34 A-8 Flow CD45 A-12 Flow CD7 A-14 Flow CD56 A-15 Flow CD64 A-9 [place]+CD19+ A-10 Lambda+CD19+ A-19 Flow HLA-DR 02/05/2021 4:28 PM [facility] Disclaimer Test performed at [facility], [address] [place] [address], [address]. *The established laboratory minimum viability is 70%. [...] complexity clinical testing. 02/05/2021 4:28 PM CDT [facility] PATHOLOGY LAB Embedded Images 4:28 PM CDT [facility] PATHOLOGY LAB Pathology/Cytolo gy BONE MARROW SPECIMEN / Unknown 02/05/2021 8:50 AM CDT 02/05/2021 1:35 PM CDT Lowell Pak MD LAB - PATHOLOGY/CYTOLOGY ORDER HERMINIA Final Result Performing Organization Address City/State/[facility] de Phone Number [facility] PATHOLOGY LAB [address] [phone] documented in this encounter Visit Diagnoses Diagnosis Anemia, unspecified documented in this encounter Care Teams Pumper Gager Apprentice Relationship Specialty Start Date End Date Jose Armando Izaguirre MD [address] [address] PCP - General 05/12/21 documented as of this encounter
--- OUTSIDE RECORDS SUMMARY | 2025-06-08 12:01 | XMS_ITS | Clinical Summary ---
Author Organization [facility] Address [address] [place] [address] Care Team Providers Care Hand Silvering Supervisor Name Role Phone Jose Armando Izaguirre MD Primary Care Provider Source Comments [facility],non-owned Affiliates and Associated Physician Practices is amultiple site organization consisting of ambulatory clinics and hospital sitesin [place], [place], [place] and [place]. This disclosure is being madepursuant to the Care Everywhere program and may not contain all information available regarding this patient. Last updated 18.[facility] Allergies No known active allergies Medications * [...] 500 mg by mouth every morning Active Thayer-3 1000 MG Take 1 capsule by mouth [...] on file Legal Sex Male 2:25 PM SCAFFOLDER Gender Identity Not on file Sexual Orientation Not on file Last Filed Vital Signs Vital Sign Reading Time Taken Comments Blood Pressure 132/58 08/31/2018 3:40 PM SCAFFOLDER Pulse 90 08/31/2018 3:40 PM SCAFFOLDER Temperature 37.1 C (98.7 F) 08/31/2018 3:40 PM SCAFFOLDER Respiratory Rate 15 08/31/2018 3:40 PM SCAFFOLDER Oxygen Saturation 95% 08/31/2018 3:40 PM SCAFFOLDER Inhaled Oxygen Concentration 21% 08/31/2018 1 2:15 PM SCAFFOLDER Weight 76.2 kg (168 lb) 08/31/2018 12:15 PM SCAFFOLDER Height 175.3 cm (5' 9) 08/29/2018 9:55 AM SCAFFOLDER Body Mass Index 24.81 08/29/2018 9:55 AM SCAFFOLDER Plan of Treatment Health Maintenance Due Date [...] patient's age to complete this topic Insurance [facility] MANAGED MEDICARE ADV Care Teams Hand Silvering Supervisor Relationship Specialty Start Date End Date Jose Armando Izaguirre MD [address] [phone] PCP - General 05/12/21
--- OUTSIDE RECORDS SUMMARY | 2025-06-08 12:01 | XMS_ITS | Clinical Summary ---
Author Organization [facility] Tricia holt [facility] Address [address] [place] [address] Care Team Providers Care Custom Furrier Name Role Phone Jose Armando Izaguirre MD [...] 0.4 mg by mouth. 0 Active Fish Oil-[place]-3 Fatty Acids (Fish Oil) 360-1,200 mg Capsule Take by mouth. 0 Active multivitamin-mi p-hjcu-MT-vit K (Adults Multivitamin) 18 mg iron-400 mcg-25 [...] STL ABSTRACTION Provider, Abstract 05/28/2025 Orders Only [facility] Oncology and Hematology - Daren [address] [place] [address] Arnaud Lew MD Chronic anemia 05/15/2025 External Device Data STL ABSTRACTION Provider, Abstract 05/14/2025 Orders Only [facility] Oncology and Hematology - Daren [address] [place] [address] Arnaud Lew MD Chronic anemia 05/01/2025 External Device Data STL ABSTRACTION Provider, Abstract 04/30/2025 Orders Only [facility] Oncology and Hematology - [place]aren [address] [place] [address] Arnaud Lew MD Chronic anemia 04/16/2025 Orders Only [facility] Oncology and Hematology - [place] [address] [place] [address] Arnaud Lew MD Chronic anemia 04/11/2025 External Device Data STL ABSTRACTION Provider, Abstract 04/10/2025 External Device Data STL ABSTRACTION Provider, Abstract 04/09/2025 4:30 PM CDT Telephone Check Up [facility] Oncology and Hematology - [place] [address] Arnaud Lew MD 04/02/2025 1:00 PM CDT Office Visit [facility] Oncology and Hematology - [place] [address] [place] [phone] Arnaud Lew MD Chronic anemia 03/23/2025 Abstract [facility] Oncology and Hematology - [place] [address] Anraud Lew MD 03/21/2025 Orders Only [facility] Oncology and Hematology - [place] [address] [place] [phone] Arnaud Lew MD 03/20/2025 Orders Only [facility] Oncology and Hematology - [place] [address] [place] [phone] Arnaud Lew MD 03/19/2025 Orders Only [facility] Oncology and Hematology - [place] [address] [place] [phone] Arnaud Lew MD Chronic anemia (Primary Dx) 03/19/2025 Orders Only [facility] Oncology and Hematology - [place] [address] [place] [address] Arnaud Lew MD Chronic anemia from Last [...] st Contact Info) Description 08/07/2025 1:15 PM GEOTHERMAL PLANT MANAGER Office Visit [facility] Oncology and Hematology [facility] [address] [facility] [address] [place] [address] Arnaud Lew MD [address] [facility] [address] [place] [address] Health Maintenance Due Date Last [...] Resu lt from Last 3 Months Insurance [facility] Address: [facility] [id number] [place] [address] Care Teams Custom Furrier Relationship Specialty Start Date End Date Jose Armando Izaguirre MD PCP - General Internal Medicine 01/14/21
== END 2025-06-08 11:30 | disposition home or self-care (01) ==
LOC: ANHED 10:58
PROVIDERS: Emergency Provider Emergency Medicine; PCP Internal Medicine
DX: B02.9 Zoster without complications (principal); I12.9 Hypertensive chronic kidney disease with stage 1 through stage 4 chronic kidney disease, or unspecified chronic kidney disease; N18.9 Chronic kidney disease, unspecified; F17.210 Nicotine dependence, cigarettes, uncomplicated; Z85.038 Personal history of other malignant neoplasm of large intestine
CPT/HCPCS: 99283

== ENCOUNTER 2025-06-15 11:51 | Emergency (ER) | payer MEDICARE, SELFPAY ==
--- NOTE | ~2025-06-15 | CT_ITS ---
EXAMINATION: CT abdomen pelvis w con DATE: 06/15/2025 15:32 INDICATION: Abdominal pain TECHNIQUE: Computed tomography (CT) of the abdomen and pelvis was performed with 100 mL Omnipaque-350 intravenous contrast. Automated exposure control and iterative reconstruction technique were employed. The dose-length product was 266.23 mGy-cm. COMPARISON: None FINDINGS: Mild emphysema. Mild irregular septal line thickening along the bilateral lung bases. No pleural effusion. Heart size normal. Atherosclerotic coronary artery calcifications. No pericardial effusion. Liver, gallbladder, spleen, pancreas and bilateral adrenal glands are normal. A few low-attenuation left renal cysts the largest a 3.7 cm exophytic cyst arising from the lower pole. There are small region of cortical scarring/thinning at the right kidney, likely sequela prior infection or infarction. Bladder is normal. Mild prostatomegaly measuring 4.3 x 3.2 cm. Normal appendix. Small bowel anastomosis in the central pelvis. No bowel obstruction. Moderate to large amount of colonic stool which could be seen with constipation. Moderate scattered diverticulosis without adjacent inflammatory stranding to suggest diverticulitis. No free intraperitoneal gas or fluid. No pathologically enlarged abdominal or pelvic lymphadenopathy. There is calcified atherosclerosis of the aorta and many of the other arteries. Mild scattered degenerative skeletal changes. IMPRESSION: 1. Moderate to large amount of colonic stool which could be seen with constipation. No other acute intra-abdominal/pelvic process. 2. Mild emphysema with mild peripheral irregular septal line thickening at the lung bases most likely related to either atelectasis or chronic interstitial lung disease with differential including less likely mild pulmonary edema or pneumonia. Reviewed, dictated and finalized at location A. IMPRESSION: 1. Moderate to large amount of colonic stool which could be seen with constipat ion. No other acute intra-abdominal/pelvic process. 2. Mild emphysema with mild peripheral irregular septal line thickening at the lung bases most likely related to either atelectasis or chronic interstitial franchesca ng disease with differential including less likely mild pulmonary edema or pneu monia.
--- OUTSIDE RECORDS SUMMARY | 2025-06-15 11:53 | XMS_ITS | Clinical Summary ---
Author Organization [facility] Tricia holt [facility] Address [address] [address] Care Team Providers Care Physical Education Specialist Name Role Phone Jose Armando Izaguirre MD [...] 0.4 mg by mouth. 0 Active Fish Oil-[place]-3 Fatty Acids (Fish Oil) 360-1,200 mg Capsule Take by mouth. 0 Active multivitamin-mi k-epth-PL-vit K (Adults Multivitamin) 18 mg iron-400 mcg-25 [...] Encounters Date Type Department Care Team Description 06/11/2025 Orders Only [facility] Oncology and Hematology - [place]aren [address] [place] [phone] Arnaud Lew MD Chronic anemia 05/29/2025 External Device Data STL ABSTRACTION Provider, Abstract 05/28/2025 Orders Only [facility] Oncology and Hematology - Daren [address] [place] [address] Arnaud Lew MD Chronic anemia 05/15/2025 External Device Data STL ABSTRACTION Provider, Abstract 05/14/2025 Orders Only [facility] Oncology and Hematology - [place]aren [address] [place] [address] Arnaud Lew MD Chronic anemia 05/01/2025 External Device Data STL ABSTRACTION Provider, Abstract 04/30/2025 Orders Only [facility] Oncology and Hematology - Daren [address] [place] [address] Arnaud Lew MD Chronic anemia 04/16/2025 Orders Only [facility] Oncology and Hematology - Daren [address] [place] [address] Arnaud Lew MD Chronic anemia 04/11/2025 External Device Data STL ABSTRACTION Provider, Abstract 04/10/2025 External Device Data STL ABSTRACTION Provider, Abstract 04/09/2025 4:30 PM CDT Telephone Check Up [facility] Oncology and Hematology - [place] [address] [place] [address] Arnaud Lew MD 04/02/2025 1:00 PM CDT Office Visit [facility] Oncology and Hematology - Daren [address] [place] [address] Arnaud Lew MD Chronic anemia 03/23/2025 Abstract [facility] Oncology and Hematology - Daren [address] [place] [address] Arnaud Lew MD 03/21/2025 Orders Only [facility] Oncology and Hematology - [place] [address] [place] [address] Arnaud Lew MD 03/20/2025 Orders Only [facility] Oncology and Hematology - [place] [address] [place] [address] Arnaud Lew MD 03/19/2025 Orders Only [facility] Oncology and Hematology - [place] [address] [place] [address] Arnaud Lew MD Chronic anemia (Primary Dx) 03/19/2025 Orders Only [facility] Oncology and Hematology - [place] [address] [place] [address] Arnaud Lew MD Chronic anemia from Last [...] st Contact Info) Description 08/07/2025 1:15 PM PARTY DIRECTOR Office Visit [facility] Oncology and Hematology - [place] [address] [facility] [address] [place] [address] Arnaud Lew MD [address] [facility] [address] [place] [address] Health Maintenance Due Date Last Done Comments DIABETES ANNUAL FOOT EXAM 1958 DIABETES ANNUAL RETINAL EXAM 1958 DIABETES MICROALBUMIN ANNUAL SCREEN 1958 LDL CHOLESTEROL ANNUAL 1958 DTAP/TDAP/TD VACCINES (1 - Tdap) 12/28/1959 ZOSTER VACCINE (1 of 2) 1990 RSV VACCINE (60+ or ) (1 - 1-dose 75+ series) 12/28/2015 DIABETES HBA1C Q 6 MONTHS 12/19/2019 06/20/2019 INFLUENZA VACCINE (#1) 2025 3, 08/07/2022, 07/15/2022, Additional history exists COVID-19 Vaccine (2024-2 6 season) 2025 09/02/2023, 08/06/2022, 09/22/2021, Additional [...] Resu lt from Last [address] [facility] [id number] Care Teams Physical Education Specialist Relationship Specialty Start Date End Date Jose Armando Izaguirre MD PCP - General Internal Medicine 01/14/21
--- OUTSIDE RECORDS SUMMARY | 2025-06-15 11:53 | XMS_ITS | Clinical Summary ---
Author Organization [facility] Address [address] [place] [address] Care Team Providers Care Quality Control Name Role Phone Jose Armando Izaguirre MD Primary Care Provider Source Comments [facility],non-owned Affiliates and Associated Physician Practices is amultiple site organization consisting of ambulatory clinics and hospital sitesin [place] and [place]. This disclosure is being madepursuant to the Care Everywhere program and may not contain all information available regarding this patient. 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 Gender Identity Not on file Sexual Orientation Not on file Last Filed Vital Signs Vital Sign Reading Time Taken Comments Blood Pressure 132/58 08/31/2018 3:40 PM ELECTRICAL LABORATORY TECHNICIAN Pulse 90 08/31/2018 3:40 PM ELECTRICAL LABORATORY TECHNICIAN Temperature 37.1 C (98.7 F) 08/31/2018 3:40 PM ELECTRICAL LABORATORY TECHNICIAN Respiratory Rate 15 08/31/2018 3:40 PM ELECTRICAL LABORATORY TECHNICIAN Oxygen Saturation 95% 08/31/2018 3:40 PM ELECTRICAL LABORATORY TECHNICIAN Inhaled Oxygen Concentration 21% 08/31/2018 1 2:15 PM ELECTRICAL LABORATORY TECHNICIAN Weight 76.2 kg (168 lb) 08/31/2018 12:15 PM ELECTRICAL LABORATORY TECHNICIAN Height 175.3 cm (5' 9) 08/29/2018 9:55 AM ELECTRICAL LABORATORY TECHNICIAN Body Mass Index 24.81 08/29/2018 9:55 AM ELECTRICAL LABORATORY TECHNICIAN Plan of Treatment Health Maintenance Due Date [...] patient's age to complete this topic Insurance [facility] MANAGED MEDICARE ADV Care Teams Quality Control Relationship Specialty Start Date End Date Jose Armando Izaguirre MD [address] [address] PCP - General 05/12/21
--- OUTSIDE RECORDS SUMMARY | 2025-06-15 11:53 | XMS_ITS | Encounter Summary ---
Author Organization [facility] [place] [facility] [employer] Address [address] [place] [address] Care Team Providers Care Music Agent Name Role Phone Jose Armando Izaguirre MD Primary Care Provider Encounter Details Date Type Department Care Team (Late Contact Info) Description 06/11/2025 Orders Only [facility] Oncology and Hematology - Daren [address] [place] [address] Arnaud Lew MD [address] [place] [address] Chronic anemia Social History Tobacco Use Types Packs/Day Years Used Date Smoking Tobacco: Every Day Cigarettes 0.5 60.9 Started: [birth year]11/1964 Smokeless Tobacco: Never Alcohol Use Standard Drinks/Week Comments Never 0 (1 standard drink = 0.6 oz pur e alcohol) Sex and Gender Information Value Date Recorded Sex Assigned at Not on file Legal Sex Male 3:02 PM CDT Gender Identity Not on file Sexual Orientation Not on file documented as of this encounter Plan of Treatment Upcoming Encounters Date Type Department Care Team (Late Contact Info) Description 08/07/2025 1:15 PM RETAIL AIDE Office Visit [facility] Oncology and Hematology - Daren [address] [place] [address] Arnaud Lew MD [address] [place] [address] documented as of this encounter Visit Diagnoses Diagnosis Chronic anemia Anemia, unspecified documented in this encounter Care Teams Music Agent Relationship Specialty Start Date End Date Jose Armando Izaguirre MD PCP - General Internal Medicine 01/14/21 documented as of this encounter
--- OUTSIDE RECORDS SUMMARY | 2025-06-15 11:53 | XMS_ITS | Encounter Summary ---
Author Organization [facility] Address [address] [place] [address] Care Team Providers Care Wharf Tally Clerk Name Role Phone Jose Armando Izaguirre MD Primary Care Provider Encounter Details Date Type Department Care Team (Late st Contact Info) Description 02/05/2021 Lab Requisition [facility] Care Pathology Lab [address] [place] [address] Lowell Pak MD [address] [address] Anemia, unspecified Social History Tobacco Use Types Packs/Day Years Used Date Smoking Tobacco: Every Day Smokeless Tobacco: Never Comments:Trying too.Down 10 cigarettes per day. 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 Gender Identity Not on file Sexual Orientation [...] AM CDT) Case Report Flow Cytometry Case: [id number] Authorizing Provider: Lowell Pak MD Collected: 02/05/2021 08:50 AM Ordering Location: [facility] Care Pathology Lab Received: 02/05/2021 01:35 PM Pathologist: Kayce Blue MD Specimen: Bone Marrow 02/05/2021 4:28 PM [facility] Final Diagnosis Bone marrow, flow cytometry: - No clonal B-cell or increased blast population detected 02/05/2021 4:28 PM [facility] at 1628 CDT Flow [...] the flow cytometry specimen is reviewed for inspector quality assurance purposes. 02/05/2021 4:28 PM [facility] Flow Cytometry Results Differential Result Comment Flow Cell Count /uL 62,800 Total Viability % 96.0 Lymphocytes % 44 Dim CD45 Region % 7 Monocytes % 19 Granulocytes % 30 02/05/2021 4:28 PM [facility] Reason for test Anemia, unspecified 285.9 02/05/2021 4:28 PM [facility] Client Specimen ID # [id number] 02/05/2021 4:28 PM [facility] Number of markers 19 were performed. A-2 Flow CD10 A-3 Flow CD13 A-5 Flow CD20 A-11 Flow CD2 A-13 Flow CD14 A-16 Flow CD117 A-17 Flow CD11b A-18 Flow CD11c A-1 Flow CD5 A-4 Flow CD19 A-6 Flow CD33 A-7 Flow CD34 A-8 Flow CD45 A-12 Flow CD7 A-14 Flow CD56 A-15 Flow CD64 A-9 [place]+CD19+ A-10 Lambda+CD19+ A-19 Flow HLA-DR 02/05/2021 4:28 PM [facility] Disclaimer Test performed at [facility], [address] [place] [address], [address]. *The established laboratory minimum viability is 70%. [...] complexity clinical testing. 02/05/2021 4:28 PM CDT [facility] Embedded Images 4:28 PM CDT [facility] Pathology/Cytolo gy BONE MARROW SPECIMEN / Unknown 02/05/2021 8:50 AM CDT 02/05/2021 1:35 PM CDT Lowell Pak MD LAB - PATHOLOGY/CYTOLOGY ORDER HERMINIA Final Result Performing Organization Address City/State/[facility] de Phone Number [facility] [address] [phone] documented in this encounter Visit Diagnoses Diagnosis Anemia, unspecified documented in this encounter Care Teams Wharf Tally Clerk Relationship Specialty Start Date End Date Jose Armando Izaguirre MD [address] [address] PCP - General 05/12/21 documented as of this encounter
[2025-06-15 12:00] VITALS: BP 103/53; PULSE 67; RESP 16; TEMP 36.8; O2SAT 99
--- NOTE | 2025-06-15 14:34 | ED.GENADULT ---
HPI - General Adult General Chief complaint: Abdominal Pain Stated complaint: constipation x 10 days Time Seen by Provider: 06/15/25 14:13 History of Present Illness HPI narrative: 84-year-old male presents to the emergency department for evaluation for 7 days of constipation. Patient does complain of lower abdominal discomfort. Patient does report alternating constipation and diarrhea. Patient is currently taking valacyclovir for shingles and patient is also on tramadol for pain control. Related Data Home Medications ?Medication ?Instructions ?Recorded ?Confirmed ?Last Taken ?Type Lactobacillus acidophilus and 2 cap PO DAILY 02/05/21 07/11/24 02/18/22 History rhamnosus 10 billion cell capsule (Digestive Health Probiotic) calcium 600 mg (as 1 tablet PO DAILY 02/05/21 07/11/24 02/18/22 History carbonate)-vitamin D3 10 mcg (400 unit) tablet (Calcium with Vitamin D) lisinopril 10 mg tablet 10 mg PO DAILY 02/05/21 07/11/24 02/18/22 History metformin 500 mg tablet 1,000 mg PO BID 02/05/21 07/11/24 02/18/22 History multivit with minerals-iron 18 1 tablet PO DAILY 02/05/21 07/11/24 02/18/22 History mg-folic ac 400 mcg-vit K 25 mcg tablet (Adults Multivitamin) omega-3 fatty acids 300 mg capsule 600 mg PO DAILY 02/05/21 07/11/24 02/04/21 History tamsulosin 0.4 mg capsule 0.8 mg PO DAILY 02/05/21 07/11/24 02/18/22 History ascorbic acid (vitamin C) 500 mg 500 mg PO DAILY 01/29/23 07/11/24 Unknown History capsule Allergies Allergy/AdvReac Type Severity Reaction Status Date / Time No Known Allergies Allergy Verified 06/15/25 14:09 Review of Systems Review of Systems: All systems reviewed & are unremarkable except as noted in HPI and below PMFSH Past Medical History Medical History History of colon cancer Anemia in CKD (chronic kidney disease) Macrocytic anemia Colon cancer Renal insufficiency HTN (hypertension), benign Social History Social History Smoking packs per day: 0.3 Smoking cigarettes per day: 6.0 Years smoked: 50 Smoking pack-years: 15.00 Smoking status: Current every day smoker Tobacco type: cigarettes Alcohol intake: never Substance use: never Substance use type: does not use Lack of Transportation: No Lack of Food: Never True Current Housing: I Have Housing Concerned About Future Housing: No Difficulty Paying Gas/Electric Bills: No Difficulty Paying for Meds: No Currently Unemployed: No Education: Master's Degree or Higher Difficulty w/ Childcare or Family Care: No Living arrangements: with family Gender identity (if verbalized by the patient): Male Spiritual care concerns: No Exam Narrative: APPEARANCE: Well appearing, no pain, no distress, well-nourished. HEAD: normocephalic, atraumatic. EYES: PERRLA/EOMI, conjunctivae clear. NOSE: Normal no drainage EARS:TMS clear with good light reflex. THROAT: Pharynx clear, no exudate. NECK: Supple. No adenopathy, no masses. RESPIRATORY: Airway patent, respirations nonlabored. Clear to auscultation bilaterally, no rales, rhonchi, wheezing. CARDIOVASCULAR: Regular rate and rhythm without murmurs rubs or gallops. ABDOMINAL: Soft, nontender, nondistended, normal bowel sounds MUSCULOSKELETAL: Moves all extremities. Strength/ROM intact, No edema, No calf tenderness. NEURO: Alert. Cranial nerves II through XII intact. Grossly intact SKIN: Shingles rash on left chest Rectal exam: No large fecal impaction noted on exam Course Vital Signs Vital signs: Vital Signs Temperature 98.2 F 06/15/25 12:00 Pulse Rate 67 06/15/25 12:00 Respiratory Rate 16 06/15/25 12:00 Blood Pressure 103/53 L 06/15/25 12:00 Pulse Oximetry 99 06/15/25 12:00 Oxygen Delivery Room Air 06/15/25 12:00 Temperature 98.2 F 06/15/25 12:00 Pulse Rate 67 06/15/25 12:00 Respiratory Rate 16 06/15/25 12:00 Blood Pressure 103/53 L 06/15/25 12:00 Pulse Oximetry 99 06/15/25 12:00 Oxygen Delivery Room Air 06/15/25 12:00 Medical Decision Making [facility] Narrative Medical decision making narrative: 84-year-old male presents emergency department for evaluation for issues with constipation. Patient is afebrile with no leukocytosis and hemoglobin of 10.2. Patient has an INR 1.1. Patient does have a creatinine of 1.9 which is similar to his baseline. Urine was concerning for urinary tract infection and urine culture was ordered. Patient will be started on antibiotics. CT scan shows evidence of constipation. Patient did decline a soapsuds enema. Patient was encouraged to increase his water intake and increase his MiraLax intake. Patient was started on IV Rocephin for his urinary tract infection. Patient will be discharged home with p.o. Keflex. Patient is currently a taking valacyclovir for shingles. Patient family updated the results of the workup all questions concerns were addressed patient is comfortable plan for discharge to home. Differential Diagnosis Differential Diagnosis: Colitis, diverticulitis, constipation, bowel obstruction, fecal impaction Vital Signs Vital Signs: Vital Signs Temperature 98.2 F 06/15/25 12:00 Pulse Rate 67 06/15/25 12:00 Respiratory Rate 16 06/15/25 12:00 Blood Pressure 103/53 L 06/15/25 12:00 Pulse Oximetry 99 06/15/25 12:00 Oxygen Delivery Room Air 06/15/25 12:00 Temperature 98.2 F 06/15/25 12:00 Pulse Rate 67 06/15/25 12:00 Respiratory Rate 16 06/15/25 12:00 Blood Pressure 103/53 L 06/15/25 12:00 Pulse Oximetry 99 06/15/25 12:00 Oxygen Delivery Room Air 06/15/25 12:00 Lab Data Lab results reviewed: Yes I reviewed the patient's lab results. 06/15/25 14:44 06/15/25 15:18 Labs: Lab Results 06/15/25 06/15/25 06/15/25 Range/Units 14:44 14:45 15:18 WBC 9.1 (4.5-10.0) K/mm3 RBC 3.16 L (4.6-6.20) M/mm3 Hgb 10.2 L (14.0-18.0) g/dL Hct 31.1 L (42.0-52.0) % MCV 98.4 (80-100) fl MCH 32.3 (26-34) pg MCHC 32.8 (32-36) g/dl RDW 13.7 (11.5-14.5) % Plt Count 296 (150-375) k/mm3 MPV 9.3 (7.4-10.4) fl Immature Gran % (Auto) 1.7 H (0-0.5) % Neut % (Auto) 61.5 (45.5-73.1) % Lymph % (Auto) 27.4 (18.3-44.2) % [place] % (Auto) 8.4 (2.6-8.5) % Eos % (Auto) 0.7 (0-4.4) % Baso % (Auto) 0.3 (0.2-1.2) % Lymph # (Auto) 2.49 (0.9-3.2) K/mm3 [place] # (Auto) 0.8 H (0.1-0.6) K/mm3 Eos # (Auto) 0.1 (0-0.3) K/mm3 Baso # (Auto) 0.0 (0.0-0.1) K/mm3 Abs Immat Gran (auto) 0.15 H (0.00-0.031) K/mm3 Absolute Neuts (auto) 5.6 (1.3-6.7) K/mm3 Absolute Nucleated RBC 0.000 (0.0-0.012) K/mm3 Nucleated RBC % 0.0 (0.0-0.2) % PT 12.7 (11.1-14.7) Seconds INR 1.0 APTT 31.7 (22.3-36.8) Seconds Sodium 131 L (137-145) mmol/L Potassium 4.8 (3.4-5.0) mmol/L Chloride 100 (98-107) mmol/L Carbon Dioxide 22 (22-30) mmol/L Anion Gap 9 (4-12) mmol/L BUN 39 H D (9-20) mg/dL Creatinine 1.77 H 1.90 H (0.7-1.3) mg/dL Estim Creat Clear Calc 27 25 ml/min Estimated GFR 37 L 34 L (59 - ) Glucose 110 (65-110) mg/dL Lactic Acid 1.0 (0.7-2.0) mmol/L Calcium 10.1 (8.4-10.2) mg/dL Total Bilirubin 0.7 (0.2-1.3) mg/dL AST 36 (17-59) U/L ALT 22 (6-50) U/L Alkaline Phosphatase 69 (38-126) U/L Total Protein 8.7 H (6.3-8.2) g/dL Albumin 4.4 (3.5-5.1) g/dL Lipase 45 (23-300) U/L Urine Color Yellow (Yellow) Urine Appearance Cloudy H (Clear) Urine pH 5.5 (5.0-9.0) Ur Specific [place] 1.011 (1.001-1.035) Urine Protein 2+ H (Negative) mg/dL Urine Glucose (UA) Negative (Negative) mg/dL Urine Ketones Negative (Negative) mg/dL Ur Blood (Man) Negative (Negative) Urine Nitrate Positive H (Negative) Urine Bilirubin Negative (Negative) Urine Urobilinogen 0.2 (<2.0) mg/dL Leukocyte Esterase Rfl 2+ H (Negative) SYLVIA/UL Urine RBC 0-2 (0-2) /hpf Urine WBC 51-100 H (0-3) /hpf Ur Squamous Epith Cells None seen (Few) /hpf Urine Bacteria 4+ H /hpf Urine Casts 0-2 Imaging Data Radiologist's impression: Impressions Abdomen/Pelvis CT 06/15/25 15:42 IMPRESSION: 1. Moderate to large amount of colonic stool which could be seen with constipation. No other acute intra-abdominal/pelvic process. 2. Mild emphysema with mild peripheral irregular septal line thickening at the lung bases most likely related to either atelectasis or chronic interstitial lung disease with differential including less likely mild pulmonary edema or pneumonia. Discharge Plan Discharge Clinical Impression: Acute UTI, Constipation Patient Disposition: Home Condition: Stable Instructions: Antibiotic Form, Constipation (DC), Abdominal Pain (ED), Urinary Tract Infection in Older Adults (ED) Additional Instructions: Antibiotic as directed until completed for the urinary tract infection. Drink plenty of fluids. Increase your MiraLax dosing to help with constipation. Have close follow-up with your primary care physician. If you have any worsening symptoms please call or return to the emergency department. Patient Language: Lao Prescriptions: New cephalexin 500 mg capsule 500 mg PO Q8H 7 Days Qty: 21 0RF No Action mupirocin 2 % ointment 1 applic topical .COMPLEX Qty: 22 3RF Rx Instructions: 4-6x daily for 1-2 weeks then cut back to 1-2x per day ascorbic acid (vitamin C) 500 mg capsule 500 mg PO DAILY Patient Comments: ..... metformin 500 mg tablet 1,000 mg PO BID tamsulosin 0.4 mg capsule 0.8 mg PO DAILY lisinopril 10 mg tablet 10 mg PO DAILY Patient Comments: . calcium carbonate-vitamin D3 [Calcium with Vitamin D] 600 mg(1,500mg) -400 unit Tablet 1 tablet PO DAILY Fish Oil 300 mg Capsule 600 mg PO DAILY Adults Multivitamin 18 mg iron-400 mcg-25 mcg Tablet 1 tablet PO DAILY Digestive Health Probiotic 10 billion cell Capsule 2 cap PO DAILY valacyclovir [Valtrex] 1 gram tablet 1,000 mg PO Q8H Qty: 21 0RF Follow-up/Referrals: Dmitriy,MD Jose Armando [Primary Care Provider, Unknown]
[2025-06-15] MEDS: LACTATED RINGERS 1,000 ML 999 ML IV CONT (14:46)
[2025-06-15 14:56] LABS: Hematocrit 31.1 % (42.0-52.0); Hemoglobin 10.2 g/dL (14.0-18.0); Immature Granulocyte Percent A 1.7 % (0-0.5); Lymphocytes Absolute Auto 2.49 K/mm3 (0.9-3.2); Mean Corpuscular HGB Conc 32.8 g/dl (32-36); Mean Corpuscular Hemoglobin 32.3 pg (26-34); Mean Corpuscular Volume 98.4 fl (80-100); Nucleated Red Blood Cells Absolute Auto 0.000 K/mm3 (0.0-0.012); Nucleated Red Blood Cells Perc 0.0 % (0.0-0.2); Platelet Count Result 296 k/mm3 (150-375); Red Blood Count 3.16 M/mm3 (4.6-6.20); White Blood Count 9.1 K/mm3 (4.5-10.0)
[2025-06-15 15:02] LABS: Add Urine Microscopic? YES; Appearance Urine Cloudy (Clear); Glucose Urine UA Negative (Negative); Leukocyte Esterase Ur 2+ LEU/UL (Negative); Nitrate Urine Positive (Negative); Non Pathogenic Casts 0-2; Specific Grav Ur 1.011 (1.001-1.035)
[2025-06-15 15:08] LABS: Alanine Aminotransferase 22 U/L (6-50); Albumin Level 4.4 g/dL (3.5-5.1); Alkaline Phosphatase 69 U/L (38-126); Anion Gap 9 mmol/L (4-12); Aspartate Amino Transferase 36 U/L (17-59); Bilirubin,Total 0.7 mg/dL (0.2-1.3); Blood Urea Nitrogen 39 mg/dL (9-20); Calcium 10.1 mg/dL (8.4-10.2); Carbon Dioxide 22 mmol/L (22-30); Chloride 100 mmol/L (98-107); Estimated CRCL calculation 27 ml/min; Estimated Glomerular Filt Rate 37; Glucose 110 mg/dL (65-110); INR 1.0; Lipase 45 U/L (23-300); Potassium 4.8 mmol/L (3.4-5.0); Prothrombin Time 12.7 Seconds (11.1-14.7); Sodium 131 mmol/L (137-145); Total Protein 8.7 g/dL (6.3-8.2)
[2025-06-15 15:09] LABS: Partial Thromboplastin Time 31.7 Seconds (22.3-36.8)
[2025-06-15 15:20] LABS: Estimated CRCL calculation 25 ml/min; Estimated Glomerular Filt Rate 34
[2025-06-15] MEDS: cefTRIAXone 1 GM in SODIUM CHLORIDE 0.9% IV 50 ML 100 ML IVPB (15:50)
--- NOTE | 2025-06-15 16:59 | PC.NURSE ---
pt refused soap suds enema ERP dr Guevara aware.
== END 2025-06-15 17:02 | disposition home or self-care (01) ==
PROVIDERS: Emergency Provider Emergency Medicine; PCP Internal Medicine
DX: K59.00 Constipation, unspecified (principal); N39.0 Urinary tract infection, site not specified; B02.9 Zoster without complications; I12.9 Hypertensive chronic kidney disease with stage 1 through stage 4 chronic kidney disease, or unspecified chronic kidney disease; N18.9 Chronic kidney disease, unspecified; D63.1 Anemia in chronic kidney disease; F17.210 Nicotine dependence, cigarettes, uncomplicated; Z85.038 Personal history of other malignant neoplasm of large intestine; Z79.899 Other long term (current) drug therapy; J43.9 Emphysema, unspecified
CPT/HCPCS: 36415; 74177; 80053; 81001; 83605; 83690; 85025; 85610; 85730; 87077; 87086; 87186; 96361; 96365; 99284; J0696; J7120; Q9967